=== PATIENT | female | born 1940 | race Caucasian/White ===

== ENCOUNTER 2023-09-19 16:29 | Emergency (ER) | payer OTHER, SELFPAY ==
[2023-09-19 16:35] VITALS: BP 174/86
[2023-09-19 19:00] VITALS: BP 154/75
--- NOTE | 2023-09-19 19:36 | ED.GENMED ---
History of Present Illness
General
Chief Complaint: Esophageal Problem
Source: patient
Time Seen by Provider: 09/19/23 19:06
Travel History
Have you had any contact with someone who has COVID-19?: No
Do you have any symptoms of coronavirus? Fever > 100 degrees, chills, cough, shortness of breath, sore throat, loss of taste or smell, muscle aches, or headache?: No
History of Present Illness
History of Present Illness:
83-year-old female presents emergency department with complaints of pain across the front of her chest and in her 'esophagus'. This started shortly after she drank/gulp coffee that she did not realize was very hot and she suspects that she 'burned
my esophagus'. She woke up this morning and was hungry so when she ate she felt like the pain got worse. She denies dyspnea, diaphoresis, nausea, vomit, abdominal pain, fever, chills, dizziness, swelling, foreign body sensation, bleeding, or other
complaints.
Past History
Past History
ED Past Medical History: Cancer, HTN, Hypercholesterolemia, Hypothyroidism and Other (Hiatal hernia)
ED Past Surgical History: Other (Lumpectomy, hiatal hernia repair)
Social History
Tobacco: Former smoker
Alcohol: None
Drug: None
Living: with family
Family History
Family History: Unable to obtain
Phy Exam
Physical Exam
Physical Exam:
GENERAL: Alert , in no apparent distress
EYE: pupils equal and reactive
NECK: Supple, no significant adenopathy.
ENT: o/p clr, mm dry
CARDIAC: Regular rate and rhythm .
LUNGS: Clear breath sounds bilaterally, no acute respiratory distress, no wheezes/rales/rhonchi
ABDOMEN: Soft, without focal tenderness, no r/g, no cvat
NEUROLOGICAL: Alert and oriented, no focal neuro deficits
SKIN: Warm and dry, skin intact.
MUSCULOSKELETAL: No edema, well perfused.
PSYCH: Normal and appropriate interaction.
Course
Orders/Labs/Results
Orders:
Orders
09/19/23 16:41
Electrocardiogram (*1) Urgent
Reason for Study: Shortness of Breath
EKG- Treatment ONCE
09/19/23 19:36
Cardiac Monitoring- Treatment ONCE
Mag Hydrox/Al Hydrox/Simeth [Maalox] 30 ml Phenobarb/Hyoscy/Atropine/Scop [] 10 ml Viscous Lidocaine 2% [Xylocaine Viscous Cup] 10 ml PO NOW
CR Chest - 2 Views Urgent
Comment:
Reason For Exam: pain
09/19/23 19:44
Mag Hydrox/Al Hydrox/Simeth [Maalox] 30 ml .ROUTE .STK-MED ONE
Phenobarb/Hyoscy/Atropine/Scop [] 10 ml .ROUTE .STK-MED ONE
09/19/23 19:45
Viscous Lidocaine 2% [Xylocaine Viscous Cup] 15 ml .ROUTE .STK-MED ONE
09/19/23 19:49
Complete Blood Count/No Diff Urgent
Comprehensive Metabolic Panel Urgent
D-Dimer Urgent
Troponin I Urgent
Abnormal Lab Results
09/19/23
19:49
WBC 14.5 H 10^3/uL
(4.8-10.8)
RDW 14.8 H %
(11.5-14.5)
Plt Count 437 H 10^3/uL
(130-400)
Glucose 157 H mg/dl
(70-99)
09/19/23 19:49
09/19/23 19:49
Vital Signs
Initial and Last Documented VS:
Initial Vital Signs
Temp Pulse Resp BP Pulse Ox
98.5 F 90 18 174/86 95
09/19/23 16:35 09/19/23 16:35 09/19/23 16:35 09/19/23 16:35 09/19/23 16:35
Last Documented Vital Signs
Temp Pulse Resp BP Pulse Ox
98.5 F 101 26 154/75 94
09/19/23 16:35 09/19/23 20:45 09/19/23 20:45 09/19/23 19:00 09/19/23 20:45
*Critical Care Note
Total Time (30-74mins, 75-104mins- exclusive of procedures): Not Applicable
Update Note
Update Note:
Patient presents to the Emergency Department with ___pain in chest and 'esophagus'
Number and Complexity of Problems Addressed at the Encounter
� Chronic conditions affecting care:
� Acute Exacerbation and/or Progression of Chronic Illness:
� Differential Diagnosis includes: But not limited to PE, superficial esophageal irritation, ACS, etc. etc.
Amount and/or Complexity of Data to be Reviewed and Analyzed
� I performed an independent evaluation of and my interpretation is:
EKG: Read by me, normal sinus rhythm, normal rate, no acute ischemia
CT:
Xrays:CXR read by me and rads nad
Laboratory Studies:unremkarable
Other:
� Review of other/old records reveals:
� Clinical information was obtained by an independent historian:
� Prescriptions/Medications Considered but not given:
� Further testing considered but not performed:
Risk of Complications and/or Morbidity or Mortality of Patient Management
� Social determinants of health affecting care:
� Discussion with other providers (PCP, Hospitalists, Consultants, etc):
� Escalation of care including admission/observation vs risk of discharge considered:922 pm Pt feels better s/p meds here. Do not appreciate acs, mediastinal air/perfor suggestion, D dimer nl, etc. Stable for d/c. D/w pt
import of f/u and reasons to rted.
ED Attending Note
-
Portions of this chart may have been created with voice recognition software.� Occasional wrong word or��sound alike� substitutions may have occurred due to the inherent limitations of voice recognition software.
Discharge Plan
Departure
Patient Disposition: Home (Routine Discharge)
Date of Disposition: 09/19/23
Time of Disposition: 21:23
Patient with high blood pressure during this ER visit?: Yes
Condition: Good
Discharge Problem:
Chest pain
Instructions: BLOOD PRESSURE, Chest Pain
Prescriptions:
No Action
levothyroxine 88 MCG tablet
88 mcg PO DAILY
amlodipine 5 MG tablet
5 mg PO DAILY Qty: 60 0RF
ibuprofen 800 mg tablet
800 mg PO Q8H PRN (Reason: breast pain) Qty: 20 0RF
Referrals:
Itzel Ferrara MD [Family Provider] - Follow up in 2-3 days
Activity Restrictions/Additional Instructions:
IF YOU DEVELOP INCREASING/NEW PAIN, FEVER, TROUBLE BREATHING, SWELLING, TROUBLE SWALLOWING, VOMITING, OR OTHER WORRISOME SIGNS, GO TO THE ER IMMEDIATELY!
Interventions
Interventions:
*Risk Screen - Suicide Last Done: 09/19/23 21:27
*General Assessment Last Done: 09/19/23 21:27
*Neglect/Abuse Screening Last Done: 09/19/23 21:27
ED- Fall Risk Assessment Last Done: 09/19/23 18:50
*ED COVID-19 Vaccine History Last Done: 09/19/23 16:35
*Nursing Disposition Last Done: 09/19/23 21:27
LG-Dokdyq-Wcbuqxlfpw Assessment Last Done: 09/19/23 18:50
Discharge Date and Time
Discharge Date/Time: 09/19/23 21:48
Print Language: ALGERIAN
[2023-09-19] MEDS: MAALOX 50 PO (19:47)
[2023-09-19 20:06] LABS: Hematocrit 40.3 % (37.0-47.0); Hemoglobin 13.3 g/dL (12.0-16.0); Mean Corpuscular Hgb 28.2 pg (27.0-31.0); Mean Corpuscular Volume 85.6 fL (81.0-99.0); Mean Platelet Volume 8.6 fL (7.4-10.4); Platelet Count 437 10^3/uL (130-400); Red Blood Cell Count 4.71 10^6/uL (4.20-5.40); Red Cell Dist. Width 14.8 % (11.5-14.5); White Blood Cell Count 14.5 10^3/uL (4.8-10.8)
[2023-09-19 20:19] LABS: ALT (SGPT) 20 U/L (0-35); AST (SGOT) 21 U/L (14-36); Albumin 4.5 g/dl (3.5-5.0); Alkaline Phosphatase 104 U/L (38-126); Blood Urea Nitrogen 12 mg/dl (7-17); Calcium 9.9 mg/dl (8.4-10.2); Carbon Dioxide 23 mmol/L (22-30); Chloride 102 mmol/L (98-107); Glucose 157 mg/dl (70-99); Potassium 4.3 mmol/L (3.5-5.1); Sodium 138 mmol/L (135-145); Total Bilirubin 1.3 mg/dl (0.2-1.3); Total Protein 7.6 g/dl (6.3-8.2); eGFR > 60.00
[2023-09-19 20:20] LABS: D-Dimer 0.43 ug/mlFEU (0.00-0.50)
[2023-09-19 20:39] LABS: Troponin I < 0.012 ng/ml
== END 2023-09-19 21:48 | disposition home or self-care (01) ==
LOC: EMR 16:29
PROVIDERS: EMERGENCY PHYSICIAN Emergency Medicine; FAMILY PHYSICIAN Internal Medicine
DX: R07.89 Other chest pain (principal); I10 Essential (primary) hypertension; E78.00 Pure hypercholesterolemia, unspecified; E03.9 Hypothyroidism, unspecified; Z87.891 Personal history of nicotine dependence
CPT/HCPCS: 99283; 71046; 80053; 84484; 85027; 85379; 93005

== ENCOUNTER 2023-12-06 11:12 | Emergency (ER) | payer OTHER, SELFPAY ==
[2023-12-06 11:15] VITALS: BP 142/84
--- NOTE | 2023-12-06 12:10 | ED.GENMED ---
History of Present Illness
General
Chief Complaint: Weakness
Time Seen by Provider: 12/06/23 11:35
History of Present Illness
History of Present Illness:
Male 83-year-old female with history of hypertension and hyperlipidemia presents to the emergency department for evaluation of muscle aching in the legs ongoing for the past several days whenever she ambulates. Her daughter reports that she has
complained about this for several weeks but is only become more significant in the past 2 days. She states it feels as though her muscles are fatigued whenever she attempts to ambulate. Denies any numbness or paresthesias. No fevers or chills.
She has no symptoms at rest. Has not fallen
Past History
Past History
ED Past Medical History: Cancer, HTN, Hypercholesterolemia, Hypothyroidism and Other (Hiatal hernia)
ED Past Surgical History: Other (Lumpectomy, hiatal hernia repair)
Social History
Tobacco: Former smoker
Alcohol: None
Drug: None
Living: with family
Family History
Family History: Unable to obtain
Review of Systems
Review of Systems
Allergies reviewed?: Yes
All Other Systems: ROS reviewed and negative except as documented in HPI and ROS
Phy Exam
Physical Exam
Physical Exam:
GEN: Well appearing, NAD, WDWN
HEENT: Oral mucosa moist, no scleral icterus
Cardiac: Regular rate and rhythm
Lung: No respiratory distress, no tachypnea
MSK: No gross deformity or injuries. Lower extremity compartments are soft diffusely and symmetric bilaterally. Range of motion of bilateral hips and knees is normal. Dorsalis pedis pulses are 1+ bilaterally. Patient is able to ambulate steadily
however reports thigh pain with ambulation
Skin: Good color, no pallor or jaundice, no rashes
Neuro: AO x3, moves all extremities freely
Psych: Calm, cooperative
Course
Orders/Labs/Results
Orders:
Orders
12/06/23 12:26
Complete Blood Count/With Diff Urgent
Urinalysis Reflex To Culture Urgent
Date Specimen was Collected: 12/06/23
Time Specimen was Collected: 12:13
Urine Microscopic Reflex Cult Urgent
12/06/23 13:31
Comprehensive Metabolic Panel Urgent
Creatine Phosphokinase Urgent
12/06/23 14:49
US AIDA/TBI Only Urgent
Comment:
Reason For Exam: bilat claudication
Abnormal Lab Results
12/06/23 12/06/23
12:26 13:31
WBC 11.6 H 10^3/uL
(4.8-10.8)
MCHC 32.5 L g/dL
(33.0-37.0)
Plt Count 449 H 10^3/uL
(130-400)
Abs Immat Gran (auto) 0.1 H 10^3/uL
(0-0.05)
Absolute Neuts (auto) 9.0 H 10^3/uL
(1.4-6.5)
Absolute Monos (auto) 0.9 H 10^3/uL
(0.1-0.6)
Immature Gran % 0.6 H %
(0-0.5)
Neutrophils % 77.1 H %
(42.2-75.2)
Lymphocytes % 14.5 L %
(20.5-51.1)
BUN 22 H mg/dl
(7-17)
Glucose 107 H mg/dl
(70-99)
Urine Ketones Trace A
(Negative)
Urine Bilirubin 1+ A
(Negative)
Leukocyte Esterase Rfl Trace A
(Negative)
Urine Bacteria (Reflex) Few A
(Negative)
12/06/23 12:26
12/06/23 13:31
Vital Signs
Initial and Last Documented VS:
Initial Vital Signs
Temp Pulse Resp BP Pulse Ox
98.4 F 100 22 142/84 95
12/06/23 11:15 12/06/23 11:15 12/06/23 11:15 12/06/23 11:15 12/06/23 11:15
Last Documented Vital Signs
Temp Pulse Resp BP Pulse Ox
98.4 F 92 18 138/82 95
12/06/23 11:15 12/06/23 15:02 12/06/23 15:02 12/06/23 15:02 12/06/23 15:02
*Critical Care Note
Total Time (30-74mins, 75-104mins- exclusive of procedures): Not Applicable
ED Attending Note
-
Portions of this chart may have been created with voice recognition software.� Occasional wrong word or��sound alike� substitutions may have occurred due to the inherent limitations of voice recognition software.
Discharge Plan
Departure
Patient Disposition: Home (Routine Discharge)
Date of Disposition: 12/06/23
Time of Disposition: 15:29
Patient with high blood pressure during this ER visit?: No
Discharge Problem:
Neurogenic claudication
Instructions: Lumbar spinal stenosis
Prescriptions:
New
methylprednisolone [Medrol (Rd)] 4 mg tablets,dose pack
See Rx Instructions .ROUTE .COMPLEX Qty: 21 0RF
Rx Instructions:
orally per package directions
No Action
levothyroxine 88 MCG tablet
88 mcg PO DAILY
amlodipine 5 MG tablet
5 mg PO DAILY Qty: 60 0RF
ibuprofen 800 mg tablet
800 mg PO Q8H PRN (Reason: breast pain) Qty: 20 0RF
Referrals:
NONE,* [Family Provider] -
Activity Restrictions/Additional Instructions:
[facility]
[address]
[place] [address]
[phone]
Interventions
Interventions:
*Risk Screen - Suicide Last Done: 12/06/23 11:17
*General Assessment Last Done: 12/06/23 11:17
*Neglect/Abuse Screening Last Done: 12/06/23 11:17
ED- Fall Risk Assessment Last Done: 12/06/23 11:35
*Nursing Disposition Last Done: 12/06/23 15:34
ED- Cardiac Assessment Last Done: 12/06/23 11:35
ED- Neurological Assessment Last Done: 12/06/23 11:35
ED- Pulmonary Assessment Last Done: 12/06/23 11:35
Discharge Date and Time
Print Language: EQUATORIAL GUINEAN
[2023-12-06 12:44] VITALS: BP 140/82
[2023-12-06 12:53] LABS: % Basophils 0.3 % (0-2); % Eosinophils 0.2 % (0-6); % Immature Granulocytes 0.6 % (0-0.5); % Lymphocytes 14.5 % (20.5-51.1); % Monocytes 7.3 % (1.7-9.3); % Neutrophils 77.1 % (42.2-75.2); Absolute Immature Granulocytes 0.1 10^3/uL (0-0.05); Absolute Lymphocytes 1.7 10^3/uL (1.2-3.4); Absolute Monocytes 0.9 10^3/uL (0.1-0.6); Hematocrit 41.8 % (37.0-47.0); Hemoglobin 13.6 g/dL (12.0-16.0); Mean Corp Hgb Conc. 32.5 g/dL (33.0-37.0); Mean Corpuscular Hgb 27.9 pg (27.0-31.0); Mean Corpuscular Volume 85.8 fL (81.0-99.0); Mean Platelet Volume 9.1 fL (7.4-10.4); Nucleated Red Blood Cells % 0 %; Platelet Count 449 10^3/uL (130-400); Red Blood Cell Count 4.87 10^6/uL (4.20-5.40); Red Cell Dist. Width 14.2 % (11.5-14.5); White Blood Cell Count 11.6 10^3/uL (4.8-10.8)
[2023-12-06 12:55] LABS: Urine Albumin Trace (Neg - Trace); Urine Bilirubin 1+ (Negative); Urine Character Clear (Clear); Urine Color Yellow; Urine Glucose Negative (Negative); Urine Ketone Trace (Negative); Urine Leukocyte Trace (Negative); Urine Nitrite Negative (Negative); Urine Occult Blood Negative (Negative); Urine Specific Gravity 1.015 (<1.030); Urine Urobilinogen 1+ (Neg - 1+)
[2023-12-06 13:12] LABS: Urine Squamous Cell 21-25 /LPF (Few)
[2023-12-06 13:13] LABS: Urine Bacteria Few (Negative); Urine Red Blood Cell 0-2 /HPF (0-2)
[2023-12-06 14:13] LABS: ALT (SGPT) 16 U/L (0-35); AST (SGOT) 22 U/L (14-36); Albumin 4.2 g/dl (3.5-5.0); Alkaline Phosphatase 109 U/L (38-126); Blood Urea Nitrogen 22 mg/dl (7-17); Calcium 9.5 mg/dl (8.4-10.2); Carbon Dioxide 25 mmol/L (22-30); Chloride 101 mmol/L (98-107); Creatine Phosphokinase 42 U/L (30-135); Glucose 107 mg/dl (70-99); Potassium 4.2 mmol/L (3.5-5.1); Sodium 136 mmol/L (135-145); Total Bilirubin 0.7 mg/dl (0.2-1.3); Total Protein 7.1 g/dl (6.3-8.2); eGFR > 60.00
[2023-12-06 15:02] VITALS: BP 138/82
== END 2023-12-06 16:22 | disposition home or self-care (01) ==
LOC: EMR 11:12
PROVIDERS: Physician Assistant; EMERGENCY PHYSICIAN Emergency Medicine
DX: M48.062 Spinal stenosis, lumbar region with neurogenic claudication (principal); I10 Essential (primary) hypertension; E78.00 Pure hypercholesterolemia, unspecified; Z87.891 Personal history of nicotine dependence
CPT/HCPCS: 99284; 80053; 81003; 81015; 82550; 85025; 93922

== ENCOUNTER 2024-03-24 12:05 | Inpatient (IN) | payer OTHER, SELFPAY ==
[2024-03-23] VITALS (12 sets, daily range): BP systolic 103–141; BP diastolic 58–84; PULSE 89–119; O2SAT 96; BMI 34.9
[2024-03-23] MEDS: DILAUDID 0.5 MG IV ×2 (00:24→01:48)
[2024-03-23] MEDS: ZOFRAN 4 MG IV ×3 (00:25→08:15)
--- NOTE | 2024-03-23 00:29 | ED.GENMED ---
History of Present Illness
General
Chief Complaint: Chest Problem
Source: patient and family (daughter)
Exam Limitations: none
Time Seen by Provider: 03/23/24 00:01
History of Present Illness
History of Present Illness:
This is a 83 year old female that comes in with c/o left flank/chest pain. States that she has pain in the rib area on the left sided and some in the left arm. daughter states that this has been coming on for a few days. State that a couple days
ago she had pain in her chest, neck and she took Tylenol thinking this would go away. States that it went away on the right side but the left flared up tonight. State sthat she can't take a deep breath due to the pain. States that she has chest pain
with SOB. Denies any fever, chills, abd pain, nausea, vomiting, diarrhea, headache, dizziness, urinary burning.
Past History
Past History
ED Past Medical History: Arrthythmia (Atrial fib), Cancer (Breast CA), HTN, Hypercholesterolemia, Hypothyroidism and Other (Hiatal hernia, Colitis, Macular degeneration, )
ED Past Surgical History: Gynecological (Fibroid removed, ) and Other (Lumpectomy left breast, hiatal hernia repair)
Social History
Tobacco: Former smoker
Alcohol: None
Drug: None
Personal:
Living: with family
Family History
Family History: Unable to obtain
Review of Systems
Review of Systems
All Other Systems: ROS reviewed and negative except as documented in HPI and ROS
Constitutional: Reports no symptoms; Denies fever or chills
EENT: Reports no symptoms
Respiratory: Reports trouble breathing; Denies cough
Cardiac: Reports chest pain
ABD/GI: Reports no symptoms; Denies abdominal pain, nausea, vomiting or diarrhea
: Reports no symptoms; Denies dysuria, frequency or urgency
Musculoskeletal: Reports other (Pain over left rib area. )
Skin: Reports no symptoms
Neurological: Reports no symptoms; Denies dizzy or headache
Psychiatric: Reports no symptoms
Phy Exam
General Physical Exam
General Presentation: moderate distress
General age: appears stated age
General Skin: warm and dry
General Habitus: elderly
General Mental: alert
General Hydration: dry mucous membranes
ENT Exam
ENT Exam: TM's normal, pharynx normal and neck supple
Eye Exam
Eye Exam: EOMI
Cardiovascular Exam
Cardiovascular Exam: regular rate/rhythm, no edema and normal peripheral pulses
Pulmonary Exam
Pulmonary Exam: lungs clear, no respiratory distress, no rales, chest non tender, no rhonchi, no cough and other (Decreased breath sounds left base)
Gastrointestinal Exam
Gastrointestinal Exam: normal bowel sounds, non tender, soft, no organomegaly, no pulsatile mass and non distended
Musculoskeletal Exam
Musculoskeletal Exam: full ROM, no edema and other (Tenderness with palpation over the left lower rib area)
Skin Exam
Skin Exam: normal color, warm/dry, no rash and no petechia
Psychiatric Exam
Psychiatric Exam: normal mood/affect
Course
Orders/Labs/Results
Orders:
Orders
03/22/24 23:42
EKG [Electrocardiogram (*1)] Urgent
Reason for Study: Abdominal Pain
EKG- Treatment ONCE
03/23/24 00:22
HYDROmorphone [Dilaudid] 0.5 mg .ROUTE .STK-MED ONE
03/23/24 00:23
Ondansetron Injectable [Zofran] 4 mg .ROUTE .STK-MED ONE
03/23/24 00:24
HYDROmorphone [Dilaudid] 0.5 mg IV NOW STA
03/23/24 00:25
Ondansetron Injectable [Zofran] 4 mg IV NOW STA
03/23/24 00:28
CR Chest - 2 Views Urgent
Comment:
Reason For Exam: Left chest pain
03/23/24 00:29
Ketorolac [Toradol] 15 mg IV NOW STA
03/23/24 00:31
Complete Blood Count/With Diff Urgent
Comprehensive Metabolic Panel Urgent
D-Dimer Urgent
Troponin I Urgent
03/23/24 01:43
CT Pe/abd/pel W Urgent
Reason For Exam: L chest abd pain. Dif taking deep breath
03/23/24 01:44
HYDROmorphone [Dilaudid] 0.5 mg IV NOW STA
Ondansetron Injectable [Zofran] 4 mg IV NOW STA
03/23/24 03:01
Prochlorperazine [Compazine] 5 mg IV NOW STA
Abnormal Lab Results
03/23/24
00:31
MCHC 31.9 L g/dL
(33.0-37.0)
RDW 14.8 H %
(11.5-14.5)
Plt Count 521 H 10^3/uL
(130-400)
Abs Immat Gran (auto) 0.1 H 10^3/uL
(0-0.05)
Absolute Neuts (auto) 7.5 H 10^3/uL
(1.4-6.5)
Absolute Monos (auto) 0.7 H 10^3/uL
(0.1-0.6)
Immature Gran % 0.6 H %
(0-0.5)
Neutrophils % 75.3 H %
(42.2-75.2)
Lymphocytes % 16.3 L %
(20.5-51.1)
D-Dimer 0.54 H ug/mlFEU
(0.00-0.50)
BUN 18 H mg/dl
(7-17)
Glucose 166 H mg/dl
(70-99)
03/23/24 00:31
03/23/24 00:31
Thrombocythemia, D-dimer very slightly elevated. Very slight Dehydration. Hyperglycemia. Troponin <0.012,
Vital Signs
Initial and Last Documented VS:
Initial Vital Signs
Pulse Resp
93 22
03/22/24 23:41 03/22/24 23:41
Last Documented Vital Signs
Pulse Resp BP Pulse Ox
96 16 121/82 95
03/23/24 02:01 03/23/24 02:01 03/23/24 02:01 03/23/24 02:01
MDM/Problems Addressed
Differential Diagnosis Includes:
PE, Pleurisy, PNA
MDM/Problems Addressed:
This is a 83 year old female that comes in with c/o left sided rib/chest pain. States that this started a few days ago and the right side got better but then tonight the left side flared up.
Will get labs, chest x-ray, medicate for pain.
back into see patient. Patient states that her pain is some better but she still has pain and is nauseated. Explained that her D-dimer is slightly elevated. Will get CT of chest/abd/pelvis.
Back into see patient and daughter. Explained that the CT if negative for any PE and that there is nothing acute going on in the abd. There is a small pleural effusion on the left. Patient continued with nausea and vomiting. Will admit for further
evaluation. Hospitalist notified.
Chronic conditions affecting care: Cancer
Acute Exacerbation and/or Progression of Chronic Illness: Cancer
*Radiology
Radiology exam reviewed: radiology read reviewed (CT night hawk- Good bolus, mild motion. NO evidence of pulmonary embolism. No evidence of aortic dissection or aneurysm. Small left base pleural effusion. Dependent atelectasis. Superimposed
infection is not excluded. Correlate with signs of infection. No focal airspace consolidation.), all reviewed NAD by ED Provider (CT cont-No pneumothorax. CT abd/pelvis:No definite CT findings to acount for the reported pain/symptoms. No
appendicitis or colitis. NO evidence of small bowel obstruction. No free fluid or free air. Cholelithiasis without definite CT findings of cholecystitis. Unremarkable CT appearance of the ) and other (CT cont-biliary tract and pancreas. Consider
correlation with RUQ exam findings. NO evidence of hydroureteronephrosis or obstructing stone. Mild renal atrophy with cystic foci suggesting renal cortical scarring. Unremarkable appearance of the pelvis viscera. No AAA )
*Pulse Oximetry
Patient hypoxic: no
*Opening Machine Cleaner Interpretation
Rate: tachycardiac
Heart Rate: 113
Rhythm: sinus tachycardia
*Critical Care Note
Total Time (30-74mins, 75-104mins- exclusive of procedures): Not Applicable
ED Attending Note
-
Portions of this chart may have been created with voice recognition software.� Occasional wrong word or��sound alike� substitutions may have occurred due to the inherent limitations of voice recognition software.
Discharge Plan
Departure
Patient Disposition: Admit
Date of Disposition: 03/23/24
Time of Disposition: 03:17
Admit to: Med/Surg
Presentation/result/management discussed w/ accepting MD/DO: Hospitalist
Patient with high blood pressure during this ER visit?: No
Condition: Good
Covid-19: Not Applicable
Discharge Problem:
Nausea & vomiting, Acute left flank pain
Prescriptions:
No Action
levothyroxine 88 MCG tablet
88 mcg PO DAILY
amlodipine 5 MG tablet
5 mg PO DAILY Qty: 60 0RF
ibuprofen 800 mg tablet
800 mg PO Q8H PRN (Reason: breast pain) Qty: 20 0RF
methylprednisolone [Medrol (Rd)] 4 mg tablets,dose pack
See Rx Instructions .ROUTE .COMPLEX Qty: 21 0RF
Rx Instructions:
orally per package directions
Referrals:
UNKNOWN - PT DOES,NOT KNOW [Family Provider] -
Interventions
Interventions:
*Risk Screen - Suicide Last Done: 03/22/24 23:35
*General Assessment Last Done: 03/23/24 00:01
*Neglect/Abuse Screening Last Done: 03/22/24 23:35
*ED COVID-19 Vaccine History Last Done: 03/23/24 00:01
ZR-Rgruxt-Poeoypwiwb Assessment Last Done: 03/23/24 00:01
ED- Cardiac Assessment Last Done: 03/23/24 00:01
ED- Pulmonary Assessment Last Done: 03/23/24 00:01
Discharge Date and Time
Print Language: HAITIAN
[2024-03-23] MEDS: TORADOL 15 MG IV (00:33)
[2024-03-23 00:39] LABS: % Basophils 0.4 % (0-2); % Eosinophils 0.4 % (0-6); % Immature Granulocytes 0.6 % (0-0.5); % Lymphocytes 16.3 % (20.5-51.1); % Neutrophils 75.3 % (42.2-75.2); Absolute Immature Granulocytes 0.1 10^3/uL (0-0.05); Absolute Lymphocytes 1.6 10^3/uL (1.2-3.4); Absolute Monocytes 0.7 10^3/uL (0.1-0.6); Absolute Neutrophils 7.5 10^3/uL (1.4-6.5); Hematocrit 44.2 % (37.0-47.0); Hemoglobin 14.1 g/dL (12.0-16.0); Mean Corp Hgb Conc. 31.9 g/dL (33.0-37.0); Mean Corpuscular Hgb 28.7 pg (27.0-31.0); Mean Corpuscular Volume 89.8 fL (81.0-99.0); Mean Platelet Volume 8.9 fL (7.4-10.4); Nucleated Red Blood Cells % 0 %; Platelet Count 521 10^3/uL (130-400); Red Blood Cell Count 4.92 10^6/uL (4.20-5.40); Red Cell Dist. Width 14.8 % (11.5-14.5); White Blood Cell Count 9.9 10^3/uL (4.8-10.8)
[2024-03-23 00:51] LABS: ALT (SGPT) 14 U/L (0-35); AST (SGOT) 22 U/L (14-36); Albumin 4.3 g/dl (3.5-5.0); Alkaline Phosphatase 88 U/L (38-126); Blood Urea Nitrogen 18 mg/dl (7-17); Calcium 9.3 mg/dl (8.4-10.2); Carbon Dioxide 22 mmol/L (22-30); Chloride 107 mmol/L (98-107); Estimated Creatinine Clearance 52 ml/min; Glucose 166 mg/dl (70-99); Potassium 4.6 mmol/L (3.5-5.1); Sodium 144 mmol/L (135-145); Total Bilirubin 0.6 mg/dl (0.2-1.3); Total Protein 7.1 g/dl (6.3-8.2); eGFR > 60.00
[2024-03-23 01:08] LABS: Troponin I < 0.012 ng/ml
[2024-03-23 01:19] LABS: D-Dimer 0.54 ug/mlFEU (0.00-0.50)
[2024-03-23] MEDS: COMPAZINE 5 MG IV (03:07)
--- NOTE | 2024-03-23 03:47 | HPS.HSE ---
Family Physician
-
Family Physician: NOT KNOW UNKNOWN - PT DOES
Chief Complaint
-
Chest Pain
History of Present Illness
Patient is an 83y F with PMH significant for breast cancer s/p lumpectomy and radiation, hypothyroidism and prior A-Fib s/p cardioversion who presents to ED complaining of chest pain. History obtained from patient and family at the bedside.
Patient has experienced pain across the shoulders and in the bilateral chest for the past few days. She has been taking Tylenol with minimal relief of her symptoms. Pain is worse with deep breathing or certain movements. This evening, pain was
much worse and patient presented to the ED for evaluation. Pain is mostly in the L chest / L rib area, but is not solely there as it has been in the past.
Patient denies any recent fevers / chills, sore throat, cough, etc.
No recent GI or symptoms or complaints.
In the ED, patient was given narcotic pain medications - after which she developed N/V.
At the time of my examination, patient is sleeping comfortably / somewhat sedate.
Medical History
Past Medical History
Past Medical History: Reports Other
Additional Past Medical History:
Hypertension
Hypothyroidism
Obesity
Breast Cancer s/p Lumpectomy and XRT
GERD / Hiatal Hernia
COPD
Paroxysmal Atrial Fibrillation s/p Cardioversion (2013)
Past Surgical History: Reports Other
Additional Past Surgical History:
Hiatal Hernia Repair
Left Lumpectomy
Social History
Tobacco: Former Smoker (Quit 20 years ago. Approx 30 pack years total use.)
Alcohol: None
Drug: None
Family History
Family History: Not pertinent
Allergies / Home Medications
Allergies reflects when Allergies were last updated in [facility].
Home Medications with original date entered in [facility]
Allergy/Medication List:
Daughter believes that patient takes only 'lisinopril and thyroid medicine' - but cannot recall doses, etc.
Review of Systems
-
History Source: Patient and Family
A 12 point ROS was completed and negative except as noted: Yes
Constitutional: Reports Fatigue; Denies Fever or Chills
EENT: Denies Sore Throat
Respiratory: Reports Trouble Breathing; Denies Cough or Hemoptysis
Cardiac: Reports Chest Pain; Denies Diaphoresis, Palpitations or Syncope
Abdomen/GI: Reports Nausea and Vomiting; Denies Abdominal Pain or Diarrhea
: Denies Dysuria or Frequency
Musculoskeletal: Denies Joint Pain or Edema
Neurological: Reports Headache; Denies Dizzy
Psych: Denies Depression or Anxiety
Physical Exam
Vital Signs
Vital Signs
Pulse Resp BP Pulse Ox
110 16 125/71 87
03/23/24 03:00 03/23/24 03:00 03/23/24 03:00 03/23/24 03:00
Physical Exam
General: Other (83y F curently sleeping comfortably. Awakens to stimuli and will answer questions / follow commands, but falls quickly back to sleep.)
HEENT: Moist mucous membranes and PERRLA
Respiratory: Other (Decreased at bases - otherwise clear.)
Cardiac: S1/S2 and Irregular Rhythm; No Murmur
GI: Soft, Non Tender, Non Distended and Normal Bowel Sounds
Musculoskeletal: No Clubbing, No Cyanosis and No Edema
Neuro: Oriented
Laboratory Results
-
03/23/24 00:31
03/23/24 00:31
Laboratory Results
Total Bilirubin 0.6 mg/dl (0.2-1.3) 03/23/24 00:31
AST 22 U/L (14-36) 03/23/24 00:31
ALT 14 U/L (0-35) 03/23/24 00:31
Alkaline Phosphatase 88 U/L (38-126) 03/23/24 00:31
Troponin I < 0.012 ng/ml 03/23/24 00:31
Impression/Plan
-
A/P: Patient is an 83y F with PMH significant for hypertension, hypothyroidism, breast cancer and A-Fib who presents to ED complaining of chest pain.
Chest Pain
- Observe overnight for further evaluation and treatment.
- Pain is mostly isolated to the L chest and is similar to multiple prior episodes that she has had per her daughter.
- Typically these episodes improve with NSAIDs and we will continue these for now.
- PT / OT evaluations for mobility / ROM.
- Follow for new / worsening symptoms.
- Follow for clinical improvement.
- Pain seems related to prior breast surgery / radiation as symptoms started shortly after that time.
- CT done today negative for PE, etc.
Paroxysmal Atrial Fibrillation
- Stable. Rates around 100 bpm on telemetry / EKG.
- Prior h/o A-Fib, but not known to have recurred since prior DCCV (2013).
- Monitor on tele overnight.
- Begin low dose Toprol for now and titrate as needed.
- Hold on OAC acutely while on NSAIDs for pain as noted above - may wish to start at discharge.
- Cardiology evaluation for additional recommendations.
N/V
- This was clearly secondary to narcotic pain medication administered in the ED.
- Continue supportive care, antiemetics, etc.
- Avoid narcotic medications for pain if possible.
Benign Hypertension
- ? amlodipine v lisinopril v other.
- Follow BP on newly added Toprol.
- Hold other meds for now pending BP trend / formal med rec.
Hypothyroidism
- Continue last recorded T4 dosing for now (88mcg).
- Update TFTs.
COPD without Acute Exacerbation
- Mild hypoxemia appreciated in the ED while patient is quite sedate.
- No wheezing on exam, recent cough, etc.
- Albuterol PRN.
- O2 as needed and wean off as able.
Obesity due to excess calories
- Affects all aspects of care.
- Encourage healthy diet and activity as tolerated with goal of weight loss.
DVT Prophylaxis: SCDs
Code Status: Full
[2024-03-23 03:48] LABS: Troponin I < 0.012 ng/ml
--- NOTE | 2024-03-23 05:57 | PTCARENOTE ---
Pt arrived to unit from ED via stretcher. Pt safely pulled over to bed in 338-1 with staff assist. Pt AAOx3, able to make needs known. Oriented to unit, call [place] within reach, plan of care ongoing.
[2024-03-23] MEDS: SYNTHROID 88 MCG PO (06:01)
--- NOTE | 2024-03-23 07:20 | CON.CAR ---
Addendum entered and electronically signed by Je Kruse MD 03/23/24 19:33:
83-year-old woman with a history of remote paroxysmal atrial fibrillation, [id number] score is 4, admitted with chronic left chest pain felt to be noncardiac and in atrial fibrillation with a marginally controlled ventricular response. Troponin
is undetectable. Previously underwent cardioversion for A-fib that occurred in the setting of gastric volvulus, without subsequent recurrences. Not chronically anticoagulated.
PMH: Paroxysmal A-fib as above, left-sided chest pain, left-sided breast cancer with lumpectomy and radiation 2014, hypertension, hyperglycemia, hyperlipidemia, COPD, CKD 3 AA, hypothyroidism
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
SH: , ex-smoker no alcohol, lives with family
Family history: Noncontributory
Allergies, home meds: per summary screen
Current meds: Levothyroxine 88 mcg a day, pantoprazole 40 a day, metoprolol ER 12.5 twice daily, atorvastatin 10 mg nightly, ibuprofen as needed, acetaminophen
138/80, pulse 97, resp rate 18, afebrile, no acute distress, some decrease in breath sounds on left, irregular rate and rhythm DVT modestly elevated, no obvious murmurs, abdomen benign, 1+ to 2+ edema
CTA: Mild CHF, fatty liver, cholelithiasis, possible splenic infarct, diverticulosis, renal cortical scarring small left pleural effusion
Hemoglobin 14.1, platelets are 452, sed rate is 23, D-dimer 0.54, proBNP is 1330
Echo: EF 55-60%, severely dilated left atrium, mild mitral regurgitation, Mild LVH, pulmonary artery pressure of 30-35 mmHg, aortic sclerosis
Chest x-ray atherosclerosis
EKG atrial flutter, rapid ventricular response, nonspecific ST and T changes
Impression:
Chest pain
Recurrence of paroxysmal Afib
Paroxysmal Afib, initially diagnosed in the setting of gastric volvulus and hiatal hernia 2013
Chronic left sided chest pain
h/o breast cancer with left lumpectomy and radiation 2014
HTN
Hyperglycemia
Hyperlipidemia
COPD
CKD 3a
Hypothyroid with elevated TSH and low normal free T4
Plan:
She presents with atrial fibrillation that is probably persistent and incidentally discovered during a presentation for chronic noncardiac chest pain.
.
There is evidence for mild volume overload on CT scan and by proBNP.
.
Her ventricular response is reasonably controlled at present.
.
Her [id number] is 4, 5 if we consider to her to have heart failure as suggested by imaging and proBNP. She should be anticoagulated. Daughter has expressed some reservations regarding this and we will await decision re: anticoagulation
We could consider the use of an SGLT2 antagonist. I would be in favor of low-dose diuretic therapy. Spironolactone is also an option.
Her EKG is overall satisfactory.
Her chest pain is likely noncardiac, defer best management strategy to hospitalist. We can consider an outpatient sestamibi study though this may not be mandatory.
We will await decision of the daughter regarding anticoagulation and will reassess regarding diuretics, SGLT2 antagonists, spironolactone etc.
At this point, I am more in favor of a rate control strategy rather than attempts at anabaptist of sinus rhythm.,
Original Note:
Consultation
Consultation Request
Date/Time Consultation Requested: 03/23/24 at 0520
Date/Time Consultation Performed: 03/23/24 at 0720
Requesting Provider: Dr. Allan
Performing Provider: Dr. Kruse
Reason for Consultation: Chest pain, recurrent pAfib
Medical History
-
History of Present Illness:
Patient came to [facility] yesterday with chest pain and was admitted with recurrence of Afib and cardiology has been consulted. Patient says that left sided chest pain started about an hour prior to admission. Patient had been experiencing right sided
chest pain for a few days prior that had resolved prior to the start of the left sided chest pain. Patient thinks this is similar to previous left sided chest pains. Patient has been seen in the ER and had admissions for chest pain about 1-2 times a
year since her left breast cancer surgery and radiation in 2014. Patient isn't sure this is the exact same pain and so she asked to come to [facility] last night. Troponin has been serially undetectable. Chest pain treated simultaneously with Dilaudid and
Toradol and no real improvement so another dose of Dilaudid was given an hour later resulting in N/V and questionable pain relief. Patient denies exertional chest pain. Cardiology also asked to see patient for recurrence of Afib. Patient with Afib
in 2013 in the setting of left atrial compression by a hiatal hernia and gastric volvulus at the time and following hernia/volvulus surgery the patient has not had documented recurrence of Afib. ECGs from admissions and ER visits over the years
have always been in SR. Patient wore a week long monitor in 2014 without Afib as well. Patient denies palpitations. Patient was not historically anticoagulated due to lack of recurrence of Afib and the thought that her Afib was situational in 2014
due to the mechanical LA compression that was resolved with surgery.
PMH:
Paroxysmal Afib, initially diagnosed in the setting of gastric volvulus and hiatal hernia 2013
Chronic left sided chest pain
h/o breast cancer with left lumpectomy and radiation 2014
HTN
Hyperglycemia
Hyperlipidemia
COPD
CKD 3a
Hypothyroid
Past Medical History
Past Medical History: Other (in HPI)
Past Surgical History: Gynecological (left breast lumpectomy) and Other (laparoscopic diaphragm repair, hiatal hernia repair)
Social History
Tobacco: Former Smoker
Alcohol: None
Drug: None
Personal:
Living: With Family (alternates living with her children that live [place]
Family History
Family History: Reviewed & Not Pertinent
Allergies / Home Medications
Allergy/AdvReac Type Severity Reaction Status Date / Time
erythromycin base Allergy Unknown Unknown Verified 03/22/24 23:36
[Erythromycin Base]
�Medication �Instructions �Recorded �Confirmed �Type
levothyroxine 88 mcg tablet 88 mcg PO DAILY Thyroid 01/26/19 12/01/22 History
amlodipine 5 mg tablet 5 mg PO DAILY Blood pressure #60 01/21/21 12/01/22 Rx
tabs
ibuprofen 800 mg tablet 800 mg PO Q8H PRN breast pain #20 12/01/22 Rx
tabs
methylprednisolone 4 mg tablets in See Rx Instructions PO .COMPLEX 12/06/23 Rx
a dose pack (Medrol (Rd)) #21 ea
Review of Systems
-
History Source: Patient
All other systems: Negative unless noted
Physical Exam
Vital Signs
Temp Pulse Resp BP Pulse Ox
97.7 F 101 18 132/73 94
03/23/24 05:46 03/23/24 05:46 03/23/24 05:46 03/23/24 05:46 03/23/24 05:46
GEN: NAD. AAO to person, place and situation
HEENT: EOMI, MMM
LUNGS: CTA B/L, no wheezes/rales
CV: Afib on tele. Irreg irreg, S1/S2, no murmur
ABD: soft, BS+, NT, ND
EXT: No clubbing, cyanosis or lesions B/L. +1 non-pitting B/L LE edema
NEURO: Gross non-focal
SKIN: Warm, dry and pink. No rash
Lab Results
Troponin I Cancelled 03/23/24 06:21
CBC 03/23/2024: WBC 13.4, hemoglobin 14.1, hematocrit 46.7, platelet count 452,000
BMP 03/23/2024: Sodium 143, potassium 5.5, BUN 18, creatinine 0.8, blood sugar 184, TSH high at 8.79, but free T4 normal at 0.79
Troponin undetectable x 2
Impression / Plan
-
PCP: Dr. Jason Borges
Cardiology: Dr. NASEEM Kruse, last seen 04/01/15
Impression:
Chest pain
Recurrence of paroxysmal Afib
Paroxysmal Afib, initially diagnosed in the setting of gastric volvulus and hiatal hernia 2013
Chronic left sided chest pain
h/o breast cancer with left lumpectomy and radiation 2014
HTN
Hyperglycemia
Hyperlipidemia
COPD
CKD 3a
Hypothyroid with elevated TSH and low normal free T4
Echo 09/12/2021: EF 55%, no significant valve disease
Echo 03/23/24: Study pending
Plan:
-Patient came to [facility] yesterday with chest pain and was admitted with recurrence of Afib and cardiology has been consulted. Patient says that left sided chest pain started about an hour prior to admission. Patient had been experiencing right sided
chest pain for a few days prior that had resolved prior to the start of the left sided chest pain. Patient thinks this is similar to previous left sided chest pains. Patient has been seen in the ER and had admissions for chest pain about 1-2 times a
year since her left breast cancer surgery and radiation in 2014. Patient isn't sure this is the exact same pain and so she asked to come to [facility] last night. Troponin has been serially undetectable. Chest pain treated simultaneously with Dilaudid and
Toradol and no real improvement so another dose of Dilaudid was given an hour later resulting in N/V and questionable pain relief. Patient denies exertional chest pain. Cardiology also asked to see patient for recurrence of Afib. Patient with Afib
in 2013 in the setting of left atrial compression by a hiatal hernia and gastric volvulus at the time and following hernia/volvulus surgery the patient has not had documented recurrence of Afib. ECGs from admissions and ER visits over the years
have always been in SR. Patient wore a week long monitor in 2014 without Afib as well. Patient denies palpitations. Patient was not historically anticoagulated due to lack of recurrence of Afib and the thought that her Afib was situational in 2014
due to the mechanical LA compression that was resolved with surgery.
-Chest pain sounds more chronic in nature. Troponin serially undetectable. Unlikely to be ACS. Recommend outpatient stress test.
-Recurrence of Afib noted on ECG that was reviewed by me and compared to previous ECGs over the last 8 years, this appears to be the first documented recurrence since 2015.Patient is asymptomatic.
-Agree with the addition of Toprol XL 12.5 mg BID by Hospitalist attending overnight and would continue.
-Patient has not been anticoagulated in the past due to lack of recurrence of Afib outside of LA compression at time of hiatal hernia/gastric volvulus in 2015. Would recommend OAC, [id number] is 4, but if you include likely DM 2 diagnosis then it
is 5. Patient cannot think of a contraindication to starting OAC. Will start Eliquis 5 mg BID (age 83, Cre 0.8, wt 92.08 kg) and ask CM to check on cost
-Check echo, ordered by me
-TSH high and free T4 is low normal. Outpatient dose of levothyroxine 88 mcg daily has been ordered
-Outpatient dose of amlodipine 5 mg daily is on hold, will follow BPs on Toprol XL and can add back if needed.
-Patient noted to be hyperglycemic. Check HgbA1c
-Check CVE, patient was taking simvastatin 20 mg daily at last cardiology visit in 2014.
-Updated patient's daughter, Luz Marina, by phone for 13:49 min. Explained chest pain and undetectable Troponin levels. Reviewed recurrence of Afib and recommendation for OAC, but patient's daughter would like to investigate more natural alternatives and
she follows with a functional medicine doctor and will review patient's case with them to see what alternatives might be. Reviewed risks of stroke and asked for a call back later today to review final decision of patient/family. For now the patient
has not been started on OAC.
[2024-03-23 07:32] LABS: Blood Urea Nitrogen 18 mg/dl (7-17); Carbon Dioxide 24 mmol/L (22-30); Chloride 106 mmol/L (98-107); Estimated Creatinine Clearance 59 ml/min; Glucose 184 mg/dl (70-99); Potassium 5.5 mmol/L (3.5-5.1); Sodium 143 mmol/L (135-145); eGFR > 60.00
[2024-03-23 08:01] LABS: TSH Reflex To Free T4 8.79 uIU/ml (0.47-4.68)
[2024-03-23 08:30] LABS: Free T4 0.79 ng/dl (0.78-2.19)
[2024-03-23 08:31] LABS: Hematocrit 46.7 % (37.0-47.0); Hemoglobin 14.1 g/dL (12.0-16.0); Mean Corp Hgb Conc. 30.2 g/dL (33.0-37.0); Mean Corpuscular Hgb 28.8 pg (27.0-31.0); Mean Corpuscular Volume 95.3 fL (81.0-99.0); Mean Platelet Volume 8.9 fL (7.4-10.4); Platelet Count 452 10^3/uL (130-400); Red Cell Dist. Width 14.8 % (11.5-14.5); White Blood Cell Count 13.4 10^3/uL (4.8-10.8)
[2024-03-23 09:00] LABS: Troponin I < 0.012 ng/ml
[2024-03-23] MEDS: PROTONIX 40 MG PO (09:14)
[2024-03-23] MEDS: TOPROL XL 12.5 MG PO ×2 (09:14→19:48)
[2024-03-23 09:16] LABS: Glycohemoglobin (HgbA1c) 6.3 % (4.0-5.6)
--- NOTE | 2024-03-23 09:19 | W.CHA2DS2VAS ---
[id number] Score
Score
Age in Years (65=0, 65-74=1, >/=75=2): > or = 75
Sex (Female=+1): Female
Congestive Heart Failure History (Yes=+1): No
Hypertension History (Yes=+1): Yes
Stroke/TIA/Thromboembolism History (Yes=+2): No
Vascular Disease History (Yes=+1): No
Diabetes Mellitus (Yes=+1): No
Score >/=2 is otherwise an anticoagulation candidate: 4
[2024-03-23] MEDS: TYLENOL 1000 MG PO ×3 (09:26→21:06)
[2024-03-23] MEDS: LOKELMA 10 GRAM PO (10:33)
[2024-03-23 10:53] LABS: Erythrocyte Sed Rate 23 mm/hour (0-20)
--- NOTE | 2024-03-23 12:15 | W.PN.UPDATE ---
Update Note
Progress Note Update
Seen and examined independent of pulmonary physician. Patient was nauseous earlier which improved with Zofran. States the pain is improving. Found to be in atrial fibrillation with rapid ventricular response.
Gen: sitting in chair,
cars s1 s2 irregular ireggular
pulm cta anteriorly
abd soft non tender non distended
ext no edema
A/P: Patient is an 83y F with PMH significant for hypertension, hypothyroidism, breast cancer and A-Fib who presents to ED complaining of chest pain.
Chest Pain
- Pain is mostly isolated to the L chest and is similar to multiple prior episodes that she has had per her daughter.
- Typically these episodes improve with NSAIDs and we will continue these for now.
- PT / OT evaluations for mobility / ROM.
- Follow for new / worsening symptoms.
- Follow for clinical improvement.
- Pain seems related to prior breast surgery / radiation as symptoms started shortly after that time.
- CT done today negative for PE, etc.
Paroxysmal Atrial Fibrillation
- Stable.
- Prior h/o A-Fib, but not known to have recurred since prior DCCV (2013).
- Monitor on tele. Check lipid panel/a1c
- Begin low dose Toprol for now and titrate as needed.
- Agree w/ Eliquis. Cardiology correspondence noted and discussion with patient daughter.
- Cardiology evaluation for additional recommendations.
N/V
- This was clearly secondary to narcotic pain medication administered in the ED.
- Continue supportive care, antiemetics, etc.
- Avoid narcotic medications for pain if possible.
Benign Hypertension
- ? amlodipine v lisinopril v other.
- Follow BP on newly added Toprol.
- Hold other meds for now pending BP trend / formal med rec.
Hypothyroidism
- Continue last recorded T4 dosing for now (88mcg).
- Update TFTs.
COPD without Acute Exacerbation
- Mild hypoxemia appreciated in the ED while patient is quite sedate.
- No wheezing on exam, recent cough, etc.
- Albuterol PRN.
- O2 as needed and wean off as able.
Obesity due to excess calories
- Affects all aspects of care.
- Encourage healthy diet and activity as tolerated with goal of weight loss.
DVT Prophylaxis: SCDs/eliquis
Code Status: Full
--- NOTE | 2024-03-23 13:05 | PTCARENOTE ---
Tried to wean pt off oxygen, but sat after been off the oxygen was 88-90%. Pt placed back on oxygen at 2 liters.
[2024-03-23 15:30] LABS: NT-proBNP 1330 pg/ml
--- NOTE | 2024-03-23 16:21 | CM ---
Alert awake oriented patient who lives with her children. Spoke with Luz Marina paul she is currently living with. They live in 2 story home with 4 steps to enter and 14 steps to bed/bathroom. She is independent in all activities of daily living.Offered VN
dgt declined need.TRAN copy left in room. Explained TRAN letter to dgt.All questions answered.
No adaptive devices
Never had VN/SNF
Pharmacy [facility] [place]
PCP [facility]
PLAN Home no needs
[2024-03-23] MEDS: LIPITOR 10 MG PO (17:18)
[2024-03-24] VITALS (7 sets, daily range): BP systolic 115–146; BP diastolic 65–76; PULSE 71; O2SAT 96
[2024-03-24] MEDS: MOTRIN 600 MG PO (04:02)
[2024-03-24] MEDS: SYNTHROID 88 MCG PO (05:05)
[2024-03-24] MEDS: PROTONIX 40 MG PO (08:46)
[2024-03-24] MEDS: TOPROL XL 12.5 MG PO ×2 (08:46→21:04)
[2024-03-24] MEDS: TYLENOL 1000 MG PO ×3 (08:47→21:04)
[2024-03-24 10:05] LABS: Blood Urea Nitrogen 22 mg/dl (7-17); Calcium 9.4 mg/dl (8.4-10.2); Carbon Dioxide 27 mmol/L (22-30); Chloride 102 mmol/L (98-107); Estimated Creatinine Clearance 43 ml/min; Glucose 176 mg/dl (70-99); Sodium 139 mmol/L (135-145); eGFR 49.86
--- NOTE | 2024-03-24 11:49 | W.PN.HOSP.TC ---
Today's Communication/Plan
-
dc NSAIDs
wean off oxygen
start eliquis
cont toprol
pt/ot
urine lytes
Assessment / Plan
Assessment / Plan
A/P: Patient is an 83y F with PMH significant for hypertension, hypothyroidism, breast cancer and A-Fib who presents to ED complaining of chest pain.
Atypical Chest Pain
- Pain is mostly isolated to the L chest and is similar to multiple prior episodes that she has had per her daughter.
- PT / OT evaluations for mobility / ROM.
- Follow for new / worsening symptoms.
- Follow for clinical improvement.
- Pain seems related to prior breast surgery / radiation as symptoms started shortly after that time.
- Troponin negative x 3.
- CT done today negative for PE. Lobulated splenic contour with some areas of low attenuation as above, question previous injury or previous infarct. Acuity of these findings is indeterminate, new as compared with 2020.
Paroxysmal Atrial Fibrillation
- Stable.
- Prior h/o A-Fib, but not known to have recurred since prior DCCV (2013).
- Monitor on tele.
- Begin low dose Toprol for now and titrate as needed.
- Agree w/ Eliquis. Discussed with patient that she is at increased risk of having a CVA. Patient with elevated Micah Vasc score. This was discussed with patient. Who is awake alert and oriented. Patient agreed to be started on Eliquis and
states she wants to reduce her risk of having stroke.
- Cardiology evaluation for additional recommendations.
Acute kidney injury likely secondary to prerenal versus NSAIDs
-DC Toradol and ibuprofen
-Trend BMP. Check urine lites and eosinophils.
N/V
- This was clearly secondary to narcotic pain medication administered in the ED.
- Continue supportive care, antiemetics, etc.
- Tolerating diet
Benign Hypertension
- Follow BP on newly added Toprol. BP well controlled with 115/66
- Hold other meds for now pending BP trend / formal med rec.
Hypothyroidism
- Continue with supplementation of Synthroid, repeat TFT in 4 to 6 weeks as outpatient.
COPD
Acute hypoxic respiratory insufficiency
- Chest x-ray was negative for infiltrates or pulmonary edema.
- duoneb PRN. not on any home inhalers
- O2 as needed and wean off as able.
Obesity due to excess calories
- Affects all aspects of care.
- Encourage healthy diet and activity as tolerated with goal of weight loss.
Prediabetes
-A1c 6.3. Changed to carb restricted diet for now. Can benefit FROM metformin once creatinine improves
Hyperkalemia
-resolved
DVT Prophylaxis: SCDs/eliquis
Code Status: Full
Anticipated Discharge: 24 - 48 hours
Subjective/Interval History
-
Date of Service: March 24, 2024
Remains with intermittent chest pain-TTP at costochondral junction and under left breast
chronic per patient
states pain started after left breast surgery
Objective Data
-
Labs:
Laboratory Results
03/24/24
08:57
Sodium 139
Potassium 5.0
Chloride 102
Carbon Dioxide 27
BUN 22 H
Creatinine 1.1 H
Glucose 176 H
Calcium 9.4
Vital Signs:
Vital Signs
Temp Pulse Resp BP Pulse Ox
98 F 88 16 115/66 96
03/24/24 11:27 03/24/24 11:27 03/24/24 11:27 03/24/24 11:27 03/24/24 11:27
I&O
03/23/24 03/24/24 03/25/24
06:59 06:59 06:59
Intake Total 840 / 840
Balance 840 / 840
Physical Exam
-
General: No Apparent Distress and Conversant
HEENT: Normocephalic, Atraumatic and Oxygen
Respiratory: Decreased Breath Sounds
Cardiac: Regular Rhythm, S1/S2 and Other (TTP at left lower costochrondal junction )
GI: Soft, Nontender, Nondistended and Normal Bowel Sounds
Genito-urinary: No Costovertebral Tender
Neuro: Awake, Alert, Oriented, AO x 3 and No Motor Deficits
Psych: Calm and Intact Judgement/Insight
Data Reviewed
-
Total Time Spent with Patient (in minutes): 52
[2024-03-24] MEDS: ELIQUIS 5 MG PO ×2 (12:13→21:04)
[2024-03-24] MEDS: SPIRIVA RESPIMAT 2.5 MCG INH (12:52)
--- NOTE | 2024-03-24 13:24 | W.PN.CARDCBS ---
Addendum entered and electronically signed by Je Kruse MD 03/24/24 18:41:
83-year-old woman with a history of remote paroxysmal atrial fibrillation, [id number] score is 4, admitted with chronic left chest pain felt to be noncardiac and in atrial fibrillation with a marginally controlled ventricular response. Troponin
is undetectable. Previously underwent cardioversion for A-fib that occurred in the setting of gastric volvulus, without subsequent recurrences. Not chronically anticoagulated.
PMH: Paroxysmal A-fib as above, left-sided chest pain, left-sided breast cancer with lumpectomy and radiation 2014, hypertension, hyperglycemia, hyperlipidemia, COPD, CKD 3 AA, hypothyroidism
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
SH: , ex-smoker no alcohol, lives with family
Family history: Noncontributory
Allergies, home meds: per summary screen
Current meds: Levothyroxine, pantoprazole, metoprolol ER 12.5 twice daily, atorvastatin 10 mg daily, apixaban 5 mg twice daily, Spiriva
Blood pressure 131/71, pulse 82, respiratory rate 16, weight is 92 kg, intake and output incomplete, head neck exam unremarkable some decreased breath sounds left base, irregular rate and rhythm, no obvious murmurs, JVD difficult to assess, some
edema, abdomen benign
telemetry with adequate rate control
Potassium 5.0, BUN/creatinine 22 and 1.1
Echo EF 55-60% mild LVH, mild mitral regurgitation, dilated left atrium, normal RV, aortic sclerosis, pulmonary artery pressure 30-35 mmHg
Impression:
Noncardiac chest pain
Persistent/permanent atrial fibrillation
Acute HFpEF
Paroxysmal Afib, initially diagnosed in the setting of gastric volvulus and hiatal hernia 2013
Chronic left sided chest pain
h/o breast cancer with left lumpectomy and radiation 2014
HTN
Hyperglycemia
Hyperlipidemia
COPD
CKD 3a
Hypothyroid with elevated TSH and low normal free T4
Plan:
Atrial fibrillation: Suspect now persistent or permanent. Rate is controlled, and she has agreed to start Eliquis. At this point would plan on strategy of rate control only, would not attempt quaker of sinus rhythm given comorbidities and
patient preference.
HFpEF: Diagnosis based upon CT scan, hypoxemia, proBNP, relatively mild. Would start furosemide 20 mg daily in AM. Trend creatinine. Add Farxiga.
Chest pain: Noncardiac continue supportive care
Other issues Per attending team.
Original Note:
Today's Communication / Plan
-
Start Eliquis to reduce risk of stroke
Continue Low dose Toprol for rate control strategy of PAF
Consider low dose oral Lasix once creat improves
Wean O2 as tolerated
Impression / Plan
-
PCP: Dr. Jason Borges
Cardiology: Dr. NASEEM Kruse, last seen 04/01/15
Impression:
Presented 03/22/2024 with chest pain.
Recurrence of paroxysmal Afib
Paroxysmal Afib, initially diagnosed in the setting of gastric volvulus and hiatal hernia 2013
Chronic left sided chest pain
h/o breast cancer with left lumpectomy and radiation 2014
HTN
Hyperglycemia
Hyperlipidemia
COPD
CKD 3a
Hypothyroid with elevated TSH and low normal free T4
Echo 09/12/2021: EF 55%, no significant valve disease
Echo 03/23/24: EF 55 to 60%. Mild concentric LVH. Severely dilated left atrium. Mild MR
Plan:
-Chest pain sounds more chronic in nature. Troponin serially undetectable. Unlikely to be ACS. CT of chest was negative for PE. Recommend outpatient stress test.
-Recurrence of Afib noted on ECG. This appears to be the first documented recurrence since 2014. Patient is asymptomatic.
-New to low dose Toprol XL 12.5 mg BID this admission. Heart rates well controlled. Given findings of echocardiogram with severe left atrial dilation may be difficult to keep patient in sinus rhythm. For now would recommend rate control strategy.
-Patient has not been anticoagulated in the past due to lack of recurrence of Afib outside of LA compression at time of hiatal hernia/gastric volvulus in 2015.
-[id number] is 4-5(if you include likely DM 2 diagnosis). Pt has agreed to start Eliquis 5 mg BID (age 83, Cre 0.8, wt 92.08 kg) on 03/24/2024
-Personally reviewed echo from 03/23/2024 which shows preserved ejection fraction with severe left atrial dilation and mild MR. Findings were reviewed with patient
-TSH 8.79, free T4 0.79 (low normal).Continue levothyroxine 88 mcg daily
-proBNP 1330. CT of chest/abdomen/pelvis suggestive of mild heart failure with small left pleural effusion and low lung volumes. Would consider starting low-dose oral diuretic Lasix 20 mg once creat improves
-Outpatient dose of amlodipine 5 mg daily is on hold. Blood pressure is reasonably controlled with Toprol. Continue to monitor with consideration of starting low-dose Lasix
-Patient noted to be hyperglycemic. HgbA1c 6.3%. Could consider a utilization of SGLT2 inhibitor
-Continue atorvastatin 10 mg. Check lipid profile in am
-Wean O2 as tolerated
HPI 03/23/2024:
Patient came to [facility] yesterday with chest pain and was admitted with recurrence of Afib and cardiology has been consulted. Patient says that left sided chest pain started about an hour prior to admission. Patient had been experiencing right sided
chest pain for a few days prior that had resolved prior to the start of the left sided chest pain. Patient thinks this is similar to previous left sided chest pains. Patient has been seen in the ER and had admissions for chest pain about 1-2 times a
year since her left breast cancer surgery and radiation in 2014. Patient isn't sure this is the exact same pain and so she asked to come to [facility] last night. Troponin has been serially undetectable. Chest pain treated simultaneously with Dilaudid and
Toradol and no real improvement so another dose of Dilaudid was given an hour later resulting in N/V and questionable pain relief. Patient denies exertional chest pain. Cardiology also asked to see patient for recurrence of Afib. Patient with Afib
in 2013 in the setting of left atrial compression by a hiatal hernia and gastric volvulus at the time and following hernia/volvulus surgery the patient has not had documented recurrence of Afib. ECGs from admissions and ER visits over the years
have always been in SR. Patient wore a week long monitor in 2014 without Afib as well. Patient denies palpitations. Patient was not historically anticoagulated due to lack of recurrence of Afib and the thought that her Afib was situational in 2014
due to the mechanical LA compression that was resolved with surgery.
Progress Note - Take Down Sorter
Subjective
Date of Service: March 24, 2024
Patient seen and examined. Sitting in bed still with chest discomfort with taking deep breaths
Objective
Labs:
03/23/24 07:57
03/24/24 08:57
Labs
Hgb 14.1 g/dL (12.0-16.0) 03/23/24 07:57
Hct 46.7 % (37.0-47.0) 03/23/24 07:57
Plt Count 452 10^3/uL (130-400) H 03/23/24 07:57
Sodium 139 mmol/L (135-145) 03/24/24 08:57
Potassium 5.0 mmol/L (3.5-5.1) 03/24/24 08:57
BUN 22 mg/dl (7-17) H 03/24/24 08:57
Creatinine 1.1 mg/dL (0.6-1.0) H 03/24/24 08:57
Glucose 176 mg/dl (70-99) H 03/24/24 08:57
Troponins
03/23/24 03/23/24 03/23/24
00:31 03:16 06:21
Troponin I < 0.012 < 0.012 Cancelled
03/23/24
07:57
Troponin I < 0.012
Vital Signs and I&O:
Vital Signs
Temp Pulse Resp BP Pulse Ox
98 F 88 16 115/66 96
03/24/24 11:27 03/24/24 11:27 03/24/24 11:27 03/24/24 11:27 03/24/24 11:27
Vital Signs
Temp Pulse Resp BP Pulse Ox
98 F 88 16 115/66 96
03/24/24 11:27 03/24/24 11:27 03/24/24 11:27 03/24/24 11:27 03/24/24 11:27
Intake & Output
03/22/24 03/23/24 03/24/24 03/25/24
06:59 06:59 06:59 06:59
Intake Total 840 / 840
Balance 840 / 840
Physical Exam
Physical Exam
GEN: No distress, awake, Ox3
HEENT: supple, anicteric, mmm
LUNGS: crackles at left base otherwise CTA, no wheezes/rales; wearing 2 lpm via NC
CV: irreg irreg, S1/S2, no murmur, rub or gallop
ABD: soft, BS+, NT/ND
EXT: trace edema edema
NEURO: Gross non-focal
SKIN: No rash, warm, dry, pink
[2024-03-24] MEDS: LIPITOR 10 MG PO (17:14)
[2024-03-24 18:46] LABS: Body Fluid for Eosinophils No Eosinophils seen
[2024-03-24 19:52] LABS: Urine Sodium 39 mmol/L (30-90)
[2024-03-25 03:52] VITALS: BP 135/63
[2024-03-25] MEDS: SYNTHROID 88 MCG PO (05:29)
[2024-03-25 06:00] VITALS: BMI 34.4
[2024-03-25 06:08] LABS: Blood Urea Nitrogen 20 mg/dl (7-17); Calcium 9.1 mg/dl (8.4-10.2); Carbon Dioxide 30 mmol/L (22-30); Chloride 101 mmol/L (98-107); Estimated Creatinine Clearance 67 ml/min; Glucose 112 mg/dl (70-99); HDL Cholesterol 38 mg/dl; LDL Cholesterol, Calculated 95 mg/dl; Potassium 5.1 mmol/L (3.5-5.1); Sodium 139 mmol/L (135-145); Total Cholesterol 164 mg/dl (50-199); Triglyceride 155 mg/dl (10-149); Very Low Density Lipoprotein 31 mg/dl (0-30); eGFR > 60.00
[2024-03-25 07:15] VITALS: BP 124/65
[2024-03-25] MEDS: SPIRIVA RESPIMAT 2.5 MCG 2 PUFF INH (07:54)
[2024-03-25] MEDS: FARXIGA 10 MG PO (08:16)
[2024-03-25] MEDS: TYLENOL 1000 MG PO ×3 (08:17→21:00)
[2024-03-25] MEDS: ELIQUIS 5 MG PO ×2 (08:17→21:01)
[2024-03-25] MEDS: TOPROL XL 12.5 MG PO ×2 (08:17→21:01)
[2024-03-25] MEDS: LASIX 20 MG PO (08:17)
[2024-03-25] MEDS: PROTONIX 40 MG PO (08:17)
[2024-03-25 11:04] VITALS: BP 121/69
--- NOTE | 2024-03-25 11:29 | W.PN.HOSP.TC ---
Today's Communication/Plan
-
Continue with diuretic
Bronchodilators
Wean oxygen as tolerated
Continue with goal-directed medical therapy
PT/OT
Assessment / Plan
Assessment / Plan
A/P: Patient is an 83y F with PMH significant for hypertension, hypothyroidism, breast cancer and A-Fib who presents to ED complaining of chest pain.
Atypical Chest Pain
- Pain is mostly isolated to the L chest and is similar to multiple prior episodes that she has had per her daughter.
- PT / OT evaluations for mobility / ROM.
- Follow for new / worsening symptoms.
- Follow for clinical improvement.
- Pain seems related to prior breast surgery / radiation as symptoms started shortly after that time.
- Troponin negative x 3.
- CT done today negative for PE. Lobulated splenic contour with some areas of low attenuation as above, question previous injury or previous infarct. Acuity of these findings is indeterminate, new as compared with 2020.
Paroxysmal Atrial Fibrillation
- Stable.
- Prior h/o A-Fib, but not known to have recurred since prior DCCV (2013).
- Monitor on tele.
- Begin low dose Toprol for now and titrate as needed.
- Agree w/ Eliquis. Discussed with patient that she is at increased risk of having a CVA. Patient with elevated Micah Vasc score. This was discussed with patient. Who is awake alert and oriented. Patient agreed to be started on Eliquis and
states she wants to reduce her risk of having stroke.
- Cardiology evaluation for additional recommendations.
Acute hypoxic respiratory sufficiency likely secondary acute HFpEF
-Started on Lasix. Started on SGLT2 inhibitor. Continue with metoprolol. On Eliquis.
-Strict I's and O's Daily weights.
Acute kidney injury likely secondary to prerenal versus NSAIDs
-DC Toradol and ibuprofen
-Trend BMP. Cr stabilzied. No urine eos seen.
N/V
- This was clearly secondary to narcotic pain medication administered in the ED.
- Continue supportive care, antiemetics, etc.
- Tolerating diet
Benign Hypertension
- Follow BP on newly added Toprol. BP well controlled with 121/69
- Hold other meds for now pending BP trend / formal med rec.
Hypothyroidism
- Continue with supplementation of Synthroid, repeat TFT in 4 to 6 weeks as outpatient.
COPD
Acute hypoxic respiratory insufficiency
- Chest x-ray was negative for infiltrates or pulmonary edema.
- duoneb TID for now.
- O2 as needed and wean off as able.
Obesity due to excess calories
- Affects all aspects of care.
- Encourage healthy diet and activity as tolerated with goal of weight loss.
Prediabetes
-A1c 6.3. Changed to carb restricted diet for now. Can benefit FROM metformin once creatinine improves
Hyperkalemia
-resolved
DVT Prophylaxis: SCDs/eliquis
Code Status: Full
Anticipated Discharge: Within 24 hours
Subjective/Interval History
-
Date of Service: March 25, 2024
Remains on 3L oxygen
pain has improved
in better spirits today
Objective Data
-
Labs:
Laboratory Results
03/25/24
05:19
Sodium 139
Potassium 5.1
Chloride 101
Carbon Dioxide 30
BUN 20 H
Creatinine 0.7
Glucose 112 H
Calcium 9.1
Vital Signs:
Vital Signs
Temp Pulse Resp BP Pulse Ox
97.8 F 85 18 121/69 96
03/25/24 11:04 03/25/24 11:04 03/25/24 11:04 03/25/24 11:04 03/25/24 11:04
I&O
03/24/24 03/25/24 03/26/24
06:59 06:59 06:59
Intake Total 840 / 840 1080 / 1080
Balance 840 / 840 1080 / 1080
Physical Exam
-
General: No Apparent Distress and Conversant
HEENT: Normocephalic, Atraumatic and Oxygen
Respiratory: Decreased Breath Sounds
Cardiac: Regular Rhythm, S1/S2 and Other (TTP at left lower costochrondal junction )
GI: Soft, Nontender, Nondistended and Normal Bowel Sounds
Genito-urinary: No Costovertebral Tender
Musculoskeletal: Edema, Right Lower Extrem (Trace) and Edema, Left Lower Extrem (Trace)
Neuro: Awake, Alert, Oriented, AO x 3 and No Motor Deficits
Psych: Calm and Intact Judgement/Insight
Data Reviewed
-
Total Time Spent with Patient (in minutes): 51
[2024-03-25] MEDS: DUONEB 3 ML INH ×2 (14:33→19:56)
[2024-03-25 15:08] VITALS: BP 160/77
--- NOTE | 2024-03-25 16:03 | W.PN.CARDCBS ---
Addendum entered and electronically signed by Zafar De La Torre DO 03/25/24 18:08:
I saw and examined the patient.
The Non Cdl Driver's note was reviewed and I agree with the note.
Comment:
Cont rate control for AFib, which is now persistent.
Cont Eliquis, started this admit
Cont lasix 20 mg daily PO started this admit
Outpt follow up to be arranged.
Original Note:
Today's Communication / Plan
-
Plan for Afib is rate control and OAC
New to Lasix PO
Impression / Plan
-
PCP: Dr. Jason Borges
Cardiology: Dr. NASEEM Kruse, last seen 04/01/15
Impression:
Presented 03/22/2024 with chest pain.
Recurrence of paroxysmal Afib
Paroxysmal Afib, initially diagnosed in the setting of gastric volvulus and hiatal hernia 2013
Chronic left sided chest pain
h/o breast cancer with left lumpectomy and radiation 2014
HTN
Hyperglycemia
Hyperlipidemia
COPD
CKD 3a
Hypothyroid with elevated TSH and low normal free T4
Chronic HFpEF
Echo 09/12/2021: EF 55%, no significant valve disease
Echo 03/23/24: EF 55 to 60%. Mild concentric LVH. Severely dilated left atrium. Mild MR
Plan:
-Patient wished to start OAC and so Eliquis 5 mg BID (age 83, Cre 0.8, wt 92.08 kg) was started 03/24/24. Of note during call with patient's daughter, Luz Marina, on 03/23/24 she was more interested in natural alternatives to OAC for the patient, but
patient is capable of making her own decisions and elected to start OAC
-Afib has been persistent this admission. Patient with known paroxysmal Afib and patient denies palpitations. Last documented Afib was in the setting of hiatal hernia and volvulus in 2013 that resulted in LA compression and then no recurrence
following surgery for GI problems.
-New to Toprol XL 12.5 mg BID. Will pursue rate control strategy given age and comorbidities.
-Chest pain is chronic and has resulted in ER visits and admissions int he past as well. Might be related to previous lumpectomy and radiation. No plans for further cardiac work-up at this time.
-New to Lasix 20 mg PO daily for chronic HFpEF. No doses of Lasix IV given.
-Outpatient dose of amlodipine 5 mg daily is on hold. Blood pressure is reasonably controlled with Toprol. Continue to monitor the need for amlodipine with consideration of starting low-dose Lasix
-Patient noted to be hyperglycemic. HgbA1c 6.3%. New to Farxiga 10 mg daily
-Continue atorvastatin 10 mg. LDL 95
HPI 03/23/2024:
Patient came to [facility] yesterday with chest pain and was admitted with recurrence of Afib and cardiology has been consulted. Patient says that left sided chest pain started about an hour prior to admission. Patient had been experiencing right sided
chest pain for a few days prior that had resolved prior to the start of the left sided chest pain. Patient thinks this is similar to previous left sided chest pains. Patient has been seen in the ER and had admissions for chest pain about 1-2 times a
year since her left breast cancer surgery and radiation in 2014. Patient isn't sure this is the exact same pain and so she asked to come to [facility] last night. Troponin has been serially undetectable. Chest pain treated simultaneously with Dilaudid and
Toradol and no real improvement so another dose of Dilaudid was given an hour later resulting in N/V and questionable pain relief. Patient denies exertional chest pain. Cardiology also asked to see patient for recurrence of Afib. Patient with Afib
in 2013 in the setting of left atrial compression by a hiatal hernia and gastric volvulus at the time and following hernia/volvulus surgery the patient has not had documented recurrence of Afib. ECGs from admissions and ER visits over the years
have always been in SR. Patient wore a week long monitor in 2014 without Afib as well. Patient denies palpitations. Patient was not historically anticoagulated due to lack of recurrence of Afib and the thought that her Afib was situational in 2015
due to the mechanical LA compression that was resolved with surgery.
Progress Note - Engineer Booster And Exhauster
Subjective
Date of Service: March 25, 2024
She thinks she is doing well
Objective
Labs:
03/23/24 07:57
03/25/24 05:19
Labs
Hgb 14.1 g/dL (12.0-16.0) 03/23/24 07:57
Hct 46.7 % (37.0-47.0) 03/23/24 07:57
Plt Count 452 10^3/uL (130-400) H 03/23/24 07:57
Sodium 139 mmol/L (135-145) 03/25/24 05:19
Potassium 5.1 mmol/L (3.5-5.1) 03/25/24 05:19
BUN 20 mg/dl (7-17) H 03/25/24 05:19
Creatinine 0.7 mg/dL (0.6-1.0) 03/25/24 05:19
Glucose 112 mg/dl (70-99) H 03/25/24 05:19
Troponins
03/23/24 03/23/24 03/23/24
00:31 03:16 06:21
Troponin I < 0.012 < 0.012 Cancelled
03/23/24
07:57
Troponin I < 0.012
Vital Signs and I&O:
Vital Signs
Temp Pulse Resp BP Pulse Ox
98.4 F 90 17 160/77 96
03/25/24 15:08 03/25/24 15:08 03/25/24 15:08 03/25/24 15:08 03/25/24 15:08
Vital Signs
Temp Pulse Resp BP Pulse Ox
98.4 F 90 17 160/77 96
03/25/24 15:08 03/25/24 15:08 03/25/24 15:08 03/25/24 15:08 03/25/24 15:08
Intake & Output
03/23/24 03/24/24 03/25/24 03/26/24
06:59 06:59 06:59 06:59
Intake Total 840 / 840 1080 / 1080
Balance 840 / 840 1080 / 1080
Physical Exam
Physical Exam
GEN: AAO to person, place and situation
HEENT: MMM
LUNGS: On 2 L NC. No audible wheeze
CV: Afib on tele.
ABD: soft, BS+, NT, ND
EXT: No clubbing, cyanosis or lesions B/L. +1 non-pitting B/L LE edema
NEURO: Gross non-focal
SKIN: Warm, dry and pink. No rash
[2024-03-25] MEDS: LIPITOR 10 MG PO (17:05)
--- NOTE | 2024-03-25 17:16 | CM ---
Spoke with pt in room.
Offered VN at [facility] . Pt declined VN.
Requested home oxygen test. Pt is on new oxygen here.
PLAN Home no needs
Watch for home oxygen
[2024-03-25 19:10] VITALS: BP 136/70
[2024-03-25 23:06] VITALS: BP 115/67
[2024-03-26 03:05] VITALS: BP 121/72
[2024-03-26] MEDS: SYNTHROID 88 MCG PO (05:12)
[2024-03-26 06:00] VITALS: BMI 33.8
[2024-03-26 07:59] LABS: Blood Urea Nitrogen 20 mg/dl (7-17); Calcium 9.3 mg/dl (8.4-10.2); Carbon Dioxide 31 mmol/L (22-30); Chloride 100 mmol/L (98-107); Estimated Creatinine Clearance 51 ml/min; Glucose 111 mg/dl (70-99); Potassium 4.4 mmol/L (3.5-5.1); Sodium 143 mmol/L (135-145); eGFR > 60.00
[2024-03-26] MEDS: DUONEB 3 ML INH (08:06)
[2024-03-26] MEDS: SPIRIVA RESPIMAT 2.5 MCG INH ×2 (08:06→08:08)
[2024-03-26 08:32] VITALS: BP 152/91
[2024-03-26] MEDS: PROTONIX 40 MG PO (08:36)
[2024-03-26] MEDS: TYLENOL 1000 MG PO (08:36)
[2024-03-26] MEDS: FARXIGA 10 MG PO (08:36)
[2024-03-26] MEDS: LASIX 20 MG PO (08:37)
[2024-03-26] MEDS: TOPROL XL 12.5 MG PO (08:37)
[2024-03-26] MEDS: ELIQUIS 5 MG PO (08:37)
--- NOTE | 2024-03-26 10:58 | W.PN.CARDCBS ---
Addendum entered and electronically signed by Nick Ennis MD 03/26/24 14:53:
I saw and examined the patient.
The Safety And Health Manager's note was reviewed and I agree with the note.
Comment: Briefly, 83-year-old woman presenting with chest discomfort found to have recurrence of paroxysmal atrial fibrillation
Received IV diuresis for heart failure with preserved ejection fraction and has been transitioned to oral Lasix
Overall appears euvolemic on exam
Remains in rate controlled atrial fibrillation here
New to Toprol XL, would continue on discharge
Was not previously anticoagulated, plan to discharge on Eliquis for cardioembolic prophylaxis
Stable cardiac status
Outpatient follow-up arranged
Original Note:
Today's Communication / Plan
-
New to Lasix 20 mg PO daily
New to Eliquis 5 mg BID
Impression / Plan
-
PCP: Dr. Jason Borges
Cardiology: Dr. NASEEM Kruse, last seen 04/01/15
Impression:
Presented 03/22/2024 with chest pain.
Recurrence of paroxysmal Afib
Paroxysmal Afib, initially diagnosed in the setting of gastric volvulus and hiatal hernia 2013
Chronic left sided chest pain
h/o breast cancer with left lumpectomy and radiation 2014
HTN
Hyperglycemia
Hyperlipidemia
COPD
CKD 3a
Hypothyroid with elevated TSH and low normal free T4
Chronic HFpEF
Echo 09/12/2021: EF 55%, no significant valve disease
Echo 03/23/24: EF 55 to 60%. Mild concentric LVH. Severely dilated left atrium. Mild MR
Plan:
-Patient feels well, less SOB with addition of Lasix 20 mg PO daily this admission. No IV doses of diuretic given. Managed as chronic HFpEF. Patient should continue with Lasix 20 mg PO daily upon d/c to home.
-Hypoxia improved following addition of Lasix
-Potassium 4.4 on 03/26/24 and has been stable, no need for KCl at time of d/c.
-EF 55% by echo this admission.
-Afib has been persistent this admission. Patient with known paroxysmal Afib in the setting of hiatal hernia and volvulus in 2013 that resulted in LA compression. Following GI surgery there were no documented recurrences and patient was not on OAC.
Back in Afib that is rate controlled and asymptomatic this admission.
-Patient wished to start OAC and so Eliquis 5 mg BID (age 83, Cre 0.8, wt 92.08 kg) was started 03/24/24. Of note during call with patient's daughter, Luz Marina, on 03/23/24 she was more interested in natural alternatives to OAC for the patient, but
patient is capable of making her own decisions and elected to start OAC
-New to Toprol XL 12.5 mg BID. Will pursue rate control strategy given age and comorbidities. Tele reviewed by me 03/26/24 and HR control is suboptimal. BP 152/91 on 03/26/24 AM. Will increase Toprol XL to 25 mg BID.
-Chest pain is chronic and has resulted in ER visits and admissions int he past as well. Might be related to previous lumpectomy and radiation. No plans for further cardiac work-up at this time.
-Outpatient dose of amlodipine 5 mg daily is on hold. Will not restart to allow for higher dose Toprol XL and new Lasix.
-Patient noted to be hyperglycemic. HgbA1c 6.3%. New to Farxiga 10 mg daily
-Continue atorvastatin 10 mg. LDL 95
-Patient is stable for d/c to home and cardiology f/u arranged.
HPI 03/23/2024: Patient came to [facility] yesterday with chest pain and was admitted with recurrence of Afib and cardiology has been consulted. Patient says that left sided chest pain started about an hour prior to admission. Patient had been
experiencing right sided chest pain for a few days prior that had resolved prior to the start of the left sided chest pain. Patient thinks this is similar to previous left sided chest pains. Patient has been seen in the ER and had admissions for
chest pain about 1-2 times a year since her left breast cancer surgery and radiation in 2014. Patient isn't sure this is the exact same pain and so she asked to come to [facility] last night. Troponin has been serially undetectable. Chest pain treated
simultaneously with Dilaudid and Toradol and no real improvement so another dose of Dilaudid was given an hour later resulting in N/V and questionable pain relief. Patient denies exertional chest pain. Cardiology also asked to see patient for
recurrence of Afib. Patient with Afib in 2013 in the setting of left atrial compression by a hiatal hernia and gastric volvulus at the time and following hernia/volvulus surgery the patient has not had documented recurrence of Afib. ECGs from
admissions and ER visits over the years have always been in SR. Patient wore a week long monitor in 2014 without Afib as well. Patient denies palpitations. Patient was not historically anticoagulated due to lack of recurrence of Afib and the
thought that her Afib was situational in 2014 due to the mechanical LA compression that was resolved with surgery.
Progress Note - Elementary School Librarian
Subjective
Date of Service: March 26, 2024
Feels much better, less SOB
Objective
Labs:
03/23/24 07:57
03/26/24 06:56
Labs
Hgb 14.1 g/dL (12.0-16.0) 03/23/24 07:57
Hct 46.7 % (37.0-47.0) 03/23/24 07:57
Plt Count 452 10^3/uL (130-400) H 03/23/24 07:57
Sodium 143 mmol/L (135-145) 03/26/24 06:56
Potassium 4.4 mmol/L (3.5-5.1) 03/26/24 06:56
BUN 20 mg/dl (7-17) H 03/26/24 06:56
Creatinine 0.9 mg/dL (0.6-1.0) 03/26/24 06:56
Glucose 111 mg/dl (70-99) H 03/26/24 06:56
Vital Signs and I&O:
Vital Signs
Temp Pulse Resp BP Pulse Ox
97.6 F 85 16 152/91 95
03/26/24 08:32 03/26/24 08:32 03/26/24 08:32 03/26/24 08:32 03/26/24 08:32
Vital Signs
Temp Pulse Resp BP Pulse Ox
97.6 F 85 16 152/91 95
03/26/24 08:32 03/26/24 08:32 03/26/24 08:32 03/26/24 08:32 03/26/24 08:32
Intake & Output
03/24/24 03/25/24 03/26/24 03/27/24
06:59 06:59 06:59 06:59
Intake Total 840 / 840 1080 / 1080 1620 / 1620
Output Total 4440 / 4440
Balance 840 / 840 1080 / 1080 -2820 / -2820
Physical Exam
Physical Exam
GEN: AAO to person, place and situation
HEENT: MMM
LUNGS: No audible wheeze
CV: Afib on tele.
ABD: soft, BS+, NT, ND
EXT: Trace non-pitting B/L LE edema
NEURO: Gross non-focal
SKIN: No rash
--- NOTE | 2024-03-26 11:00 | CM ---
Addendum entered by Shraddha Payton 03/26/24 11:58:
Free month Eliquis coupon provided to patient.
Original Note:
Patient seen bedside.
denies home care needs.
Daughter will transport when ready for d/c.
IMM completed.
Plan home no needs.
[2024-03-26 11:42] VITALS: BP 127/74
--- NOTE | 2024-03-26 11:42 | W.PN.HOSP.TC ---
Today's Communication/Plan
-
dc home
GDMT
OP cards f/u
bmp with pcp in 1 week
Assessment / Plan
Assessment / Plan
A/P: Patient is an 83y F with PMH significant for hypertension, hypothyroidism, breast cancer and A-Fib who presents to ED complaining of chest pain.
Atypical Chest Pain
- Pain is mostly isolated to the L chest and is similar to multiple prior episodes that she has had per her daughter.
- PT / OT evaluations for mobility / ROM.
- Follow for new / worsening symptoms.
- Follow for clinical improvement.
- Pain seems related to prior breast surgery / radiation as symptoms started shortly after that time.
- Troponin negative x 3.
- CT done negative for PE. Lobulated splenic contour with some areas of low attenuation as above, question previous injury or previous infarct. Acuity of these findings is indeterminate, new as compared with 2020.
Paroxysmal Atrial Fibrillation
- Stable.
- Prior h/o A-Fib, but not known to have recurred since prior DCCV (2013).
- Monitor on tele.
- Begin low dose Toprol for now and titrate as needed.
- Agree w/ Eliquis. Discussed with patient that she is at increased risk of having a CVA. Patient with elevated Micah Vasc score. This was discussed with patient. Who is awake alert and oriented. Patient agreed to be started on Eliquis and
states she wants to reduce her risk of having stroke.
- Cardiology evaluation for additional recommendations.
Acute hypoxic respiratory sufficiency likely secondary acute HFpEF
-Started on Lasix. Started on SGLT2 inhibitor. Continue with metoprolol. On Eliquis.
-Strict I's and O's Daily weights. resolved stable on room air. Home o2 eval and did not qualify for oxygen.
Acute kidney injury likely secondary to prerenal versus NSAIDs
-DC Toradol and ibuprofen
-Trend BMP. Cr stabilzied. No urine eos seen.
N/V
- This was clearly secondary to narcotic pain medication administered in the ED.
- Continue supportive care, antiemetics, etc.
- Tolerating diet
Benign Hypertension
- Follow BP on newly added Toprol. BP well controlled with 127/74
- Hold other meds for now pending BP trend / formal med rec.
Hypothyroidism
- Continue with supplementation of Synthroid, repeat TFT in 4 to 6 weeks as outpatient.
COPD
Acute hypoxic respiratory insufficiency
- Chest x-ray was negative for infiltrates or pulmonary edema.
- duoneb TID for now.
- O2 as needed and wean off as able.
Obesity due to excess calories
- Affects all aspects of care.
- Encourage healthy diet and activity as tolerated with goal of weight loss.
Prediabetes
-A1c 6.3. Changed to carb restricted diet for now. Can benefit FROM metformin once creatinine improves
Hyperkalemia
-resolved
DVT Prophylaxis: SCDs/eliquis
Code Status: Full
More than 30 minutes spent in discharge including
Final examination of the patient
Summarizing hospital stay
Instructions for continuing care to all relevant caregivers
Preparation of discharge records, prescriptions, and referral forms
Total time spent (in minutes): 51
Anticipated Discharge: Today
Subjective/Interval History
-
Date of Service: March 26, 2024
off oxygen
stable on room
denies chest pain
Objective Data
-
Labs:
Laboratory Results
03/26/24
06:56
Sodium 143
Potassium 4.4
Chloride 100
Carbon Dioxide 31 H
BUN 20 H
Creatinine 0.9
Glucose 111 H
Calcium 9.3
Vital Signs:
Vital Signs
Temp Pulse Resp BP Pulse Ox
97.6 F 85 16 152/91 95
03/26/24 08:32 03/26/24 08:32 03/26/24 08:32 03/26/24 08:32 03/26/24 08:32
I&O
03/25/24 03/26/24 03/27/24
06:59 06:59 06:59
Intake Total 1080 / 1080 1620 / 1620
Output Total 4440 / 4440
Balance 1080 / 1080 -2820 / -2820
Physical Exam
-
General: No Apparent Distress and Conversant
HEENT: Normocephalic and Atraumatic
Respiratory: Decreased Breath Sounds
Cardiac: Regular Rhythm, S1/S2 and Other (TTP at left lower costochrondal junction )
GI: Soft, Nontender, Nondistended and Normal Bowel Sounds
Genito-urinary: No Costovertebral Tender
Musculoskeletal: Edema, Right Lower Extrem (Trace) and Edema, Left Lower Extrem (Trace)
Neuro: Awake, Alert, Oriented, AO x 3 and No Motor Deficits
Psych: Calm and Intact Judgement/Insight
--- NOTE | 2024-03-26 11:46 | W.DCSUMMARY ---
Discharge Summary
Discharge Data
Date of Admission: 03/24/24
Date of Discharge: 03/26/24
-
Pending Results: No
Hospital Course
83 yo female past medical history of hypertension, hypothyroidism breast cancer status post surgery, suspected COPD Obesity due to excess calories who is presenting from home with complaint of left-sided chest pain. Patient had previous multiple
hospitalization for similar chest pain. Patient troponin were checked and found to be negative x 3. CT chest was negative for pulmonary embolism. Patient was also found to be persistent atrial fibrillation rapid ventricular response. Patient
was started on Toprol. Patient agreed to be started on Eliquis. Patient was evaluated by cardiology. Patient underwent echocardiogram. Patient was fluid overloaded on physical examination and was started on Lasix. Patient was started on 20 mg
p.o. Lasix with significant urinary output. Creatinine was stable. Patient was also started on SGLT2 inhibitor. Patient had nausea vomiting on admission which resolved and was tolerating diet. Patient required oxygenation which is able to be
weaned off to room air. Patient did not qualify for home oxygenation. Patient was eval by physical and Occupational Therapy with plan for Home VN on discharge.
Discharge Plan
-
Patient Disposition: Home with Home Care
Discharge Diagnosis/Procedures: Atypical musculoskeletal chest pain
Paroxysmal atrial fibrillation new onset
Acute hypoxic respiratory insufficiency secondary to acute HFpEF
Acute kidney injury
Nausea vomiting
Condition: Fair
Diet: 2 Gram Sodium and Restrict fluids to 48 oz
Activity: With assistance and As tolerated
Driving Restrictions: Not until seen by your Dr
Blood Work: BMP in 7 days via primary doctor.
Other Services: VN
Specialty Instructions: Weigh Daily- Call MD for wt gain/loss 3 lbs overnight/5 lbs in 1 week
Referrals:
Jason Borges MD, Resident [Family Practice Resident Year2] - in one to two weeks
Je Kruse MD [Active] - 04/09/24 9:40 am (You have an appt to see Dr. Kruse's nurse practitioner, Candace, at the [facility] on 04/09/24 at 9:40 AM. Please call [phone] if you need to reschedule.)
Prescriptions:
New
Spiriva Respimat 2.5 mcg/actuation Mist
2 puff inhalation R DAILY 30 Days Qty: 4 0RF
furosemide 20 mg Tablet
20 mg PO DAILY 30 Days Qty: 30 0RF
Eliquis 5 mg Tablet
5 mg PO BID 30 Days Qty: 60 0RF
Jardiance 10 mg tablet
10 mg PO DAILY Qty: 30 0RF
metoprolol succinate 25 mg Tablet Extended Release 24 Hr
25 mg PO BID Qty: 60 11RF
Continued
levothyroxine 88 MCG tablet
88 mcg PO DAILY
simvastatin 20 mg tablet
20 mg PO HS
acetaminophen 325 mg Capsule
650 mg PO Q6H PRN (Reason: pain)
budesonide-formoterol [Symbicort] 160-4.5 mcg/actuation Hfa Aerosol Inhaler
2 puff INHALATION BID
Discontinued
amlodipine 5 MG tablet
5 mg PO DAILY Qty: 60 0RF
Discharge Orders:
Discharge Patient (As Directed); Ordered 03/26/24
Ordered By: Joseph Allan
Discharge Date and Time
Print Language: SOMALI
[2024-03-26] MEDS: PREVNAR 20 0.5 ML IM (13:36)
[2024-03-26] MEDS: FLUAD (65 yr+) 2024-2025 FORMULA 0.5 ML IM (13:38)
[2024-03-26] MEDS: DUONEB INH (13:53)
== END 2024-03-26 15:45 | disposition home health service (06) | DRG 308 ==
LOC: 3 WEST ACU 12:05
PROVIDERS: Clinical Nurse Specialist Family Health; Physician Assistant Medical; ADMITTING PHYSICIAN Hospitalist; ATTENDING PHYSICIAN Hospitalist; EMERGENCY PHYSICIAN Emergency Medicine; OTHER PHYSICIAN Internal Medicine Cardiovascular Disease
DX: I48.0 Paroxysmal atrial fibrillation (principal); I50.31 Acute diastolic (congestive) heart failure; N17.9 Acute kidney failure, unspecified; I13.0 Hypertensive heart and chronic kidney disease with heart failure and stage 1 through stage 4 chronic kidney disease, or unspecified chronic kidney disease; R07.89 Other chest pain; R09.02 Hypoxemia; I50.9 Heart failure, unspecified; N18.31 Chronic kidney disease, stage 3a; E03.9 Hypothyroidism, unspecified; J44.9 Chronic obstructive pulmonary disease, unspecified; R06.89 Other abnormalities of breathing; E66.09 Other obesity due to excess calories; Z68.33 Body mass index [BMI] 33.0-33.9, adult; E87.5 Hyperkalemia
CPT/HCPCS: 71046; 71275; 74177; 80048; 80053; 80061; 81099; 82570; 83036; 83880; 84300; 84439; 84443; 84484; 85025; 85027; 85379; 85652; 90662; 90677; 93005; 93306; 94640; 96374; 96375; 96376; 97110; 97116; 97162; 97167; 97530; 99285; G0008; G0009; Q9967

== ENCOUNTER 2024-05-08 13:54 | Inpatient (IN) | payer OTHER, SELFPAY ==
[2024-05-06] VITALS (7 sets, daily range): BP systolic 109–154; BP diastolic 61–98; BMI 34.3; BMI 34.4
[2024-05-06 12:20] LABS: COVID-19 Antigen Negative (Negative)
--- NOTE | 2024-05-06 13:40 | ED.GENMED ---
History of Present Illness
General
Chief Complaint: Breathing Problem
Source: patient
Exam Limitations: none
Time Seen by Provider: 05/06/24 13:32
Nursing documentation reviewed up to this point in time: agreed with
History of Present Illness
History of Present Illness:
83 yo female w h/o HTN, HLD, Colitis, hypothyroidism, breast cancer status postlumpectomy, COPD, obese presents from home with complaint of cough, chest congestion past 4 days with coughing fits. Also yellow sputum.
Past History
Past History
ED Past Medical History: Arrthythmia (Atrial fib), Cancer (Breast CA), HTN, Hypercholesterolemia, Hypothyroidism and Other (Hiatal hernia, Colitis, Macular degeneration, )
ED Past Surgical History: Gynecological (Fibroid removed, ) and Other (Lumpectomy left breast, hiatal hernia repair)
Social History
Tobacco: Former smoker
Alcohol: None
Drug: None
Personal:
Living: with family
Family History
Family History: Unable to obtain
Review of Systems
Review of Systems
Allergies reviewed?: Yes
All Other Systems: ROS reviewed and negative except as documented in HPI and ROS
Constitutional: Reports fatigue; Denies fever
Respiratory: Reports cough and trouble breathing
Cardiac: Denies chest pain
ABD/GI: Denies abdominal pain, nausea, vomiting or diarrhea
: Denies dysuria, frequency or difficulty voiding
Musculoskeletal: Reports no symptoms
Skin: Reports no symptoms
Neurological: Reports no symptoms
Phy Exam
Physical Exam
Physical Exam:
GENERAL: No acute distress. A&Ox3.
CONSTITUTIONAL: Afebrile.
EYES: clear, conjunctivae normal
ENMT: moist mucus membranes, Pharynx nl, sinus stuffiness
RESPIRATORY: Regular respirations, nonlabored, lungs with coarse breath sounds and low pitched and expiratory wheezes
CARDIOVASCULAR: Regular rate and rhythm, no murmurs, no rubs.
GI: Soft, nontender, normal BS
MUSCULOSKELETAL: Moves with ease. Well perfused.
SKIN: Warm, dry, pink
PSYCH: Normal mood and affect. Well kept, interactive and appropriate
NEUROLOGIC: Awake, alert and oriented. No focal neurological deficits
Scores
Heart Failure Risk
Heart Failure Risk Score: Not Applicable
Course
Orders/Labs/Results
Orders:
Orders
05/06/24 11:26
EKG [Electrocardiogram (*1)] Urgent
Reason for Study: Shortness of Breath
CR Chest - 2 Views Urgent
Comment:
Reason For Exam: cough
05/06/24 11:27
EKG- Treatment ONCE
05/06/24 11:49
COVID-19 Antigen Urgent
Source: Nasal Swab
Influenza A+B Rapid Molecular Urgent
MARTHA Source: Nasal Swab
Specimen Description:
05/06/24 13:55
Complete Blood Count/With Diff Urgent
05/06/24 14:06
Ipratropium/Albuterol Sulfate [Duoneb] 3 ml INH R NOW STA
05/06/24 14:24
Comprehensive Metabolic Panel Urgent
NT-proBNP Urgent
Comment: ADDON
05/06/24 Dinner
Cholesterol Lowering
At Your Request: Full Participation
Fluid Restriction: 1800 mL/day (60 oz)
Cholesterol Lowering: Sodium, 2 Gram
05/06/24 16:19
Doxycycline [Vibramycin] 100 mg PO NOW STA
05/06/24 16:20
Dexamethasone [Decadron] 10 mg PO NOW STA
05/06/24 16:28
Dexamethasone Sod Phosphate [Decadron] 6 mg IV NOW STA
05/06/24 17:08
Admit/Transfer Patient As Directed
Co-Sign Provider:
Level of Care: Observation services
Assign to:: Medical/Surgical
Physician / Group: Phoenix Lezama
Diagnosis: viral bronchitis, COPD Exacerbation
PRN Pain Medication Management As Directed
May give lesser potent ordered pain med per pt: Yes
preference::
Protocol:: Medication orders for pain may be administered in a
manner that supports deferring to patient preference
when the pt is:
- Requesting an ordered lesser potent pain medication.
Least to most potent pain medications are defined
as: acetaminophen < NSAID < tramadol < opioids
(morphine, oxycodone, hydromorphone).
- Requesting a lesser dose of the same medication IF
ORDERED.
- Requesting a less intrusive route of administration
if both routes are prescribed by the provider (PO <
IV).
05/06/24 17:10
Code Status As Directed
Resuscitation Status: Full Code
05/06/24 19:31
Acetaminophen [Tylenol] 650 mg PO Q4HPRN PRN
Ipratropium/Albuterol Sulfate [Duoneb] 3 ml INH R Q4HPRN PRN
05/06/24 19:31
Activity As Directed
Activity Level: Out of Bed-Early Mobility
Intake/ Output As Directed
Frequency: Per unit guidelines
Vital Signs As Directed
Frequency: Per unit guidelines
Weight As Directed
Frequency: Daily
Copd Education [RESP] Routine
O2 Therapy [RESP] Routine
Titrate/Wean O2 to maintain O2 sat greater than (%): 93
Special Instructions: adjust, if necessary, to avoid hyperoxia in CO2 retainers.
Use High Flow O2 if necessary
DX Deep Vein Thrombosis Video Routine
05/06/24 20:00
Apixaban [Eliquis] 5 mg PO BID
Doxycycline [Vibramycin] 100 mg PO Q12
Guaifenesin [Mucinex] 600 mg PO Q12
Ipratropium/Albuterol Sulfate [Duoneb] 3 ml INH R QID
Metoprolol Xl [Toprol Xl] 25 mg PO BID
Tiotropium [place] 2.5 Mcg [Spiriva Respimat 2.5 Mcg] 2 puff INH R BID
05/07/24 04:00
Dexamethasone Sod Phosphate [Decadron] 4 mg IV Q12H
05/07/24 06:00
Levothyroxine [Synthroid] 88 mcg PO DAILY@0600
05/07/24 07:19
Basic Metabolic Panel IN AM
Complete Blood Count/With Diff IN AM
05/07/24 08:00
Amlodipine [Norvasc] 5 mg PO DAILY
Dapagliflozin [Farxiga] 10 mg PO DAILY
05/07/24 18:00
Enoxaparin Sodium [Lovenox] 40 mg SC QPM
05/08/24 08:00
Furosemide [Lasix] 20 mg PO MoWeFr@0800
Abnormal Lab Results
05/06/24 05/06/24
13:55 14:24
MCHC 31.8 L g/dL
(33.0-37.0)
RDW 15.1 H %
(11.5-14.5)
Absolute Monos (auto) 0.7 H 10^3/uL
(0.1-0.6)
Lymphocytes % 17.8 L %
(20.5-51.1)
Carbon Dioxide 21 L mmol/L
(22-30)
Glucose 104 H mg/dl
(70-99)
05/06/24 13:55
05/06/24 14:24
Vital Signs
Initial and Last Documented VS:
Initial Vital Signs
Temp Pulse Resp BP Pulse Ox
98.5 F 101 18 140/98 96
05/06/24 11:27 05/06/24 11:27 05/06/24 11:27 05/06/24 11:27 05/06/24 11:27
Last Documented Vital Signs
Temp Pulse Resp BP Pulse Ox
97.8 F 64 16 123/73 96
05/07/24 23:55 05/08/24 06:44 05/08/24 06:44 05/07/24 23:55 05/08/24 06:44
MDM/Problems Addressed
Differential Diagnosis Includes:
Covid, Flu PNA, Bronchitis, COPD exacerbation
MDM/Problems Addressed:
83 yo female w h/o HTN, HLD, Colitis, hypothyroidism, breast cancer status postlumpectomy, COPD, obese presents from home with complaint of cough, chest congestion past 4 days with coughing fits. Also yellow sputum.
CBC, CMP with no clinically significant abnormality
Covid neg
Flu neg
Chest x-ray radiology report read: IMPRESSION:
1. Mild to moderate cardiomegaly with central pulmonary vascular distention which appears chronic and unchanged.
2. Mild elevation of the anterior right hemidiaphragm.
3. Severe calcific atherosclerotic plaque in the thoracic and abdominal aorta.
Patient ambulated a short way down the hallway and her pulse ox dropped to 84%.
Plan: Admit for acute bronchitis with acute hypoxic respiratory failure
Hospitalist notified of admission
*Critical Care Note
Total Time (30-74mins, 75-104mins- exclusive of procedures): Not Applicable
ED Attending Note
-
Portions of this chart may have been created with voice recognition software.� Occasional wrong word or��sound alike� substitutions may have occurred due to the inherent limitations of voice recognition software.
Discharge Plan
Departure
Patient Disposition: Admit
Date of Disposition: 05/06/24
Time of Disposition: 16:28
Admit to: Med/Surg
Presentation/result/management discussed w/ accepting MD/DO: Hospitalist
Condition: Fair
Discharge Problem:
Acute bronchitis, Acute respiratory failure with hypoxemia
Interventions
Interventions:
*Risk Screen - Suicide Last Done: 05/06/24 20:28
*General Assessment Last Done: 05/06/24 11:27
*Neglect/Abuse Screening Last Done: 05/06/24 11:27
ED- Fall Risk Assessment Last Done: 05/06/24 14:16
*ED COVID-19 Vaccine History Last Done: 05/06/24 11:27
*Nursing Disposition Last Done: 05/06/24 19:36
ED- Cardiac Assessment Last Done: 05/06/24 14:16
ED- Pulmonary Assessment Last Done: 05/06/24 14:16
[2024-05-06] MEDS: DUONEB 3 ML INH (14:12)
[2024-05-06 14:14] LABS: % Basophils 0.4 % (0-2); % Eosinophils 0.2 % (0-6); % Immature Granulocytes 0.4 % (0-0.5); % Lymphocytes 17.8 % (20.5-51.1); % Monocytes 8.4 % (1.7-9.3); % Neutrophils 72.8 % (42.2-75.2); Absolute Lymphocytes 1.5 10^3/uL (1.2-3.4); Absolute Monocytes 0.7 10^3/uL (0.1-0.6); Absolute Neutrophils 6.2 10^3/uL (1.4-6.5); Hematocrit 46.6 % (37.0-47.0); Hemoglobin 14.8 g/dL (12.0-16.0); Mean Corp Hgb Conc. 31.8 g/dL (33.0-37.0); Mean Corpuscular Hgb 29.2 pg (27.0-31.0); Mean Corpuscular Volume 92.1 fL (81.0-99.0); Mean Platelet Volume 8.9 fL (7.4-10.4); Nucleated Red Blood Cells % 0 %; Platelet Count 377 10^3/uL (130-400); Red Blood Cell Count 5.06 10^6/uL (4.20-5.40); Red Cell Dist. Width 15.1 % (11.5-14.5); White Blood Cell Count 8.5 10^3/uL (4.8-10.8)
[2024-05-06 14:49] LABS: Sodium 138 mmol/L (135-145)
[2024-05-06 14:52] LABS: ALT (SGPT) 14 U/L (0-35); AST (SGOT) 20 U/L (14-36); Albumin 4.3 g/dl (3.5-5.0); Alkaline Phosphatase 105 U/L (38-126); Blood Urea Nitrogen 15 mg/dl (7-17); Calcium 9.3 mg/dl (8.4-10.2); Carbon Dioxide 21 mmol/L (22-30); Chloride 104 mmol/L (98-107); Estimated Creatinine Clearance 58 ml/min; Glucose 104 mg/dl (70-99); Potassium 4.5 mmol/L (3.5-5.1); Total Protein 7.3 g/dl (6.3-8.2); eGFR > 60.00
--- NOTE | 2024-05-06 16:31 | HPS.HSE ---
Family Physician
-
Family Physician: NOT KNOW UNKNOWN - PT DOES
Chief Complaint
-
cough/shotness of breath
History of Present Illness
Patient is a 83-year-old female with past medical history significant for hypertension, hyperlipidemia, hypothyroidism, COPD, CKD 3, HFpEF and atrial fibrillation who presented to [place] ED for evaluation of cough and chest congestion for past 4
days. Patient reports that she believes she had a fever yesterday, did not check but reports she was warm to touch and face was flush. Patient denies chills, chest pain, nausea, vomiting, constipation, diarrhea or urinary symptoms.
Medical History
Past Medical History
Past Medical History: Reports Other
Additional Past Medical History:
hypertension
COPD
hyperlipidemia
hypothyroidism
CKD 3
atrial fibrillation
HFpEF
Hx breast ca
Past Surgical History: Reports Other
Additional Past Surgical History:
Left breast lumpectomy (2014)
Hiatal hernia (2013)
Social History
Tobacco: Former Smoker
Alcohol: None
Drug: None
Living: With Family
Employment: Retired
Family History
Family History: Other (Sister: Lung ca)
Allergies / Home Medications
Allergies reflects when Allergies were last updated in [employer].
Home Medications with original date entered in [employer]
Allergy/Medication List:
Allergies
Allergy/AdvReac Type Severity Reaction Status Date / Time
erythromycin base Allergy Unknown Unknown Verified 05/06/24 11:27
[Erythromycin Base]
Home Medications
levothyroxine 88 mcg tablet 88 mcg PO DAILY Thyroid 01/26/19
acetaminophen 325 mg capsule 650 mg PO Q6HPRN PRN mild pain 03/23/24
apixaban 5 mg tablet (Eliquis) 5 mg PO BID 30 days #60 tabs 03/25/24
empagliflozin 10 mg tablet (Jardiance) 10 mg PO DAILY Heart Failure #30 tabs 03/25/24
metoprolol succinate 25 mg tablet,extended release 24 hr 25 mg PO BID Arrhythmia #60 tabs 03/26/24
amlodipine 5 mg tablet 5 mg PO DAILY 05/06/24
furosemide 20 mg tablet 20 mg PO MOWEFR 05/06/24
tiotropium bromide 2.5 mcg/actuation mist for inhalation (Spiriva Respimat) 2 puff inhalation R BID 05/06/24
Review of Systems
-
History Source: Patient
Constitutional: Reports Fever
EENT: Reports No Symptoms
Respiratory: Reports Cough and Trouble Breathing (shortness of breath)
Cardiac: Reports No Symptoms
Abdomen/GI: Reports No Symptoms
: Reports No Symptoms
Musculoskeletal: Reports No Symptoms
Skin: Reports No Symptoms
Neurological: Reports No Symptoms
Endocrine: Reports No Symptoms
Hematologic/Lymphatic: Reports No Symptoms
Psych: Reports No Symptoms
Physical Exam
Vital Signs
Vital Signs
Temp Pulse Resp BP Pulse Ox
98.5 F 100 19 154/64 95
05/06/24 11:27 05/06/24 14:15 05/06/24 14:15 05/06/24 13:35 05/06/24 14:16
Physical Exam
General: Well Developed, Well Nourished, No Apparent Distress, Comfortable and Conversant
HEENT: NormoCephalic, Moist mucous membranes, Atraumatic, PERRLA, [place] Conjunctivae, Nose Appears Normal, Ears Appear Normal and Neck Nontender
Respiratory: Clear, Rhonchi and Non Labored Respirations
Cardiac: S1/S2 and Regular Rhythm; No Murmur, Rub or Gallop
Breast: Deferred by me
GI: Soft, Non Tender, Non Distended and Normal Bowel Sounds; No Organomegaly
Rectal: Deferred by Provider
Genito-urinary: Deferred by me
Musculoskeletal: No Clubbing, No Cyanosis and No Edema
Skin: Warm and IV/Catheter Site; No Rash
Neuro: Awake, Alert, AO x 3 and Nonfocal/grossly intact
Hematologic/Lymphatic: No Lymphadenopathy
Psych: Calm and Intact Judgment/Insight
Laboratory Results
-
05/06/24 13:55
05/06/24 14:24
Laboratory Results
Total Bilirubin 1.0 mg/dl (0.2-1.3) 05/06/24 14:24
AST 20 U/L (14-36) 05/06/24 14:24
ALT 14 U/L (0-35) 05/06/24 14:24
Alkaline Phosphatase 105 U/L (38-126) 05/06/24 14:24
Data Reviewed
-
Diagnostic Radiology: Report Reviewed by me (CXR: 1. Mild to moderate cardiomegaly with central pulmonary vascular distention which appears chronic and unchanged. 2. Mild elevation of the anterior right hemidiaphragm. 3. Severe calcific
atherosclerotic plaque in the thoracic and abdominal aorta. )
Lab Data: Labs Reviewed by me
Impression/Plan
-
IMPRESSION/PLAN:
#Acute bronchitis
#COPD
CXR: 1. Mild to moderate cardiomegaly with central pulmonary vascular distention which appears chronic and unchanged.
2. Mild elevation of the anterior right hemidiaphragm.
3. Severe calcific atherosclerotic plaque in the thoracic and abdominal aorta.
Influenza and Covid negative
- Admit to med/surg
- dexamethasone
- DuoNeb
- Mucinex
#hypertension
- continue amlodipine, metoprolol
#hyperlipidemia
- continue simvastatin
#hypothyroidism
- continue levothyroxine
#CKD 3
BUN 15, Creat 0.8
- monitor BMP
#atrial fibrillation
- continue apixaban and metoprolol
#HFpEF
BNP 1660, does not present volume overloaded
ECHO (03/23/2024): Normal left ventricular size and systolic function. Mild concentric left
ventricular hypertrophy. No regional wall motion abnormalities are seen. LV
ejection fraction is 55-60%.
Diastolic function indeterminate due to atrial fibrillation.
Indexed LA volume is severely abnormal (> 48 mL/m2).
Mild mitral regurgitation.
- continue amlodipine, empagliflozin, furosemide, and metoprolol
- daily weights
#morbid obesity due to excessive calories
- affects all aspects of care
- encourage balanced lifestyle of diet and exercise
Code Status:
DVT Prophylaxis:
[2024-05-06 16:49] LABS: NT-proBNP 1660 pg/ml
[2024-05-06] MEDS: DECADRON 6 MG IV (16:50)
--- NOTE | 2024-05-06 17:11 | W.PN.UPDATE ---
Update Note
Progress Note Update
This is an addendum to the H&P written by Helene Gay on 05/06/2024. Patient seen and examined independently with PHARMACY CARE COORDINATOR.
83-year-old female past medical history of hypertension, hypothyroidism, breast cancer, paroxysmal atrial fibrillation, chronic HFpEF, COPD, obesity, prediabetes, CKD 3A, hypothyroidism, presenting with shortness of breath/productive cough over past
few days as well as sore throat and fever yesterday.
Examination there are bad bilateral rhonchi. Chest x-ray shows mild to moderate cardiomegaly central pulmonary vascular distention. Labs unremarkable. Cardiac BNP of 1600 but does not appear volume overloaded.
Presentation consistent with acute viral bronchitis/COPD exacerbation. Continue dexamethasone, DuoNebs. Continue doxycycline.
[2024-05-06] MEDS: ELIQUIS 5 MG PO (20:30)
[2024-05-06] MEDS: VIBRAMYCIN 100 MG PO (20:30)
[2024-05-06] MEDS: MUCINEX 600 MG PO (20:30)
[2024-05-06] MEDS: TOPROL XL 25 MG PO (20:30)
[2024-05-06] MEDS: SPIRIVA RESPIMAT 2.5 MCG 2 PUFF INH (20:52)
[2024-05-07] MEDS: DECADRON 4 MG IV ×2 (03:21→15:55)
[2024-05-07] MEDS: SYNTHROID 88 MCG PO (05:07)
[2024-05-07 05:43] VITALS: BMI 34.4
[2024-05-07 07:51] LABS: % Basophils 0.1 % (0-2); % Immature Granulocytes 0.4 % (0-0.5); % Lymphocytes 9.1 % (20.5-51.1); % Monocytes 2.6 % (1.7-9.3); % Neutrophils 87.8 % (42.2-75.2); Absolute Lymphocytes 0.7 10^3/uL (1.2-3.4); Absolute Monocytes 0.2 10^3/uL (0.1-0.6); Absolute Neutrophils 6.7 10^3/uL (1.4-6.5); Hematocrit 44.1 % (37.0-47.0); Hemoglobin 14.4 g/dL (12.0-16.0); Mean Corp Hgb Conc. 32.7 g/dL (33.0-37.0); Mean Corpuscular Hgb 29.1 pg (27.0-31.0); Mean Corpuscular Volume 89.3 fL (81.0-99.0); Mean Platelet Volume 9.1 fL (7.4-10.4); Nucleated Red Blood Cells % 0 %; Platelet Count 428 10^3/uL (130-400); Red Blood Cell Count 4.94 10^6/uL (4.20-5.40); Red Cell Dist. Width 14.8 % (11.5-14.5); White Blood Cell Count 7.6 10^3/uL (4.8-10.8)
[2024-05-07] MEDS: SPIRIVA RESPIMAT 2.5 MCG 2 PUFF INH ×2 (07:53→20:10)
[2024-05-07] MEDS: VIBRAMYCIN 100 MG PO ×2 (08:15→21:46)
[2024-05-07] MEDS: TOPROL XL 25 MG PO ×2 (08:16→21:46)
[2024-05-07] MEDS: FARXIGA 10 MG PO (08:16)
[2024-05-07] MEDS: ELIQUIS 5 MG PO ×2 (08:16→21:46)
[2024-05-07] MEDS: MUCINEX 600 MG PO ×2 (08:17→21:46)
[2024-05-07] MEDS: NORVASC 5 MG PO (08:17)
[2024-05-07 08:19] LABS: Blood Urea Nitrogen 18 mg/dl (7-17); Calcium 9.5 mg/dl (8.4-10.2); Carbon Dioxide 23 mmol/L (22-30); Chloride 103 mmol/L (98-107); Estimated Creatinine Clearance 56 ml/min; Glucose 149 mg/dl (70-99); Potassium 4.3 mmol/L (3.5-5.1); Sodium 138 mmol/L (135-145); eGFR > 60.00
[2024-05-07 08:41] VITALS: BP 115/73
--- NOTE | 2024-05-07 10:42 | CM ---
Patient seen bedside.
IA completed.
Patient lives with daughter in a 2 story home with 4 steps to enter.
No Assistive devices.
Drives locally only.
Patient with no hx VN
Not on home oxygen.
PCP: Jason Borges ([facility] in [place])
Pharmacy: [facility]
Plan: home, no needs anticiapted.
--- NOTE | 2024-05-07 12:35 | W.PN.HOSP.TC ---
Today's Communication/Plan
-
Monitor vital signs
see plan
Continue with steroids, nebs
Trial of Lasix
cw metoprolol
Assessment / Plan
Assessment / Plan
General: Well Developed, Well Nourished, No Apparent Distress, Comfortable and Conversant
HEENT: NormoCephalic, Moist mucous membranes, Atraumatic, PERRLA, [place] Conjunctivae
Respiratory: Clear, Rhonchi and Non Labored Respirations
Cardiac: S1/S2 and Regular Rhythm
GI: Soft, Non Tender, Non Distended and Normal Bowel Sounds
Musculoskeletal: No Edema
Neuro: Awake, Alert, AO x 3 and Nonfocal/grossly intact
Psych: Calm and Intact Judgment/Insight
Acute bronchitis
#COPD exacerbation
CXR: 1. Mild to moderate cardiomegaly with central pulmonary vascular distention which appears chronic and unchanged.
2. Mild elevation of the anterior right hemidiaphragm.
3. Severe calcific atherosclerotic plaque in the thoracic and abdominal aorta.
Influenza and Covid negative
- dexamethasone
- DuoNeb
- Mucinex
#hypertension
- continue amlodipine, metoprolol
#hyperlipidemia
- continue simvastatin
#hypothyroidism
- continue levothyroxine
#CKD 3
BUN 15, Creat 0.8
- monitor BMP
#atrial fibrillation
- continue apixaban and metoprolol
#HFpEF
Does not appear to be in volume overload however proBNP high
Trial of Lasix
ECHO (03/23/2024): Normal left ventricular size and systolic function. Mild concentric left
ventricular hypertrophy. No regional wall motion abnormalities are seen. LV
ejection fraction is 55-60%.
Diastolic function indeterminate due to atrial fibrillation.
Indexed LA volume is severely abnormal (> 48 mL/m2).
Mild mitral regurgitation.
- continue amlodipine, empagliflozin, furosemide, and metoprolol
- daily weights
#morbid obesity due to excessive calories
- affects all aspects of care
- encourage balanced lifestyle of diet and exercise
DVT Prophylaxis:
Eliquis
Code Status:
Full code
I spent a total of 51 minutes with the patient or on the floor. More than 50% of this time involved counseling and coordination of care.
Anticipated Discharge: 24 - 48 hours
Subjective/Interval History
-
Date of Service: May 07, 2024
denies pain
Objective Data
-
Labs:
Laboratory Results
05/07/24
07:19
WBC 7.6
Hgb 14.4
Hct 44.1
Plt Count 428 H
Sodium 138
Potassium 4.3
Chloride 103
Carbon Dioxide 23
BUN 18 H
Creatinine 0.8
Glucose 149 H
Calcium 9.5
Vital Signs:
Vital Signs
Temp Pulse Resp BP Pulse Ox
97.4 F 87 18 115/73 94
05/07/24 08:41 05/07/24 08:41 05/07/24 08:41 05/07/24 08:41 05/07/24 08:41
I&O
05/06/24 05/07/24 05/08/24
06:59 06:59 06:59
Intake Total 480 / 480
Balance 480 / 480
[2024-05-07] MEDS: LASIX 20 MG IV (13:12)
[2024-05-07] MEDS: XOPENEX 1.25 MG INHALANT SOLUTION INH ×2 (13:23→20:11)
[2024-05-07] MEDS: ATROVENT NEBULES 0.5 MG INH (13:23)
[2024-05-07 16:01] VITALS: BP 144/76
--- NOTE | 2024-05-07 17:07 | PTCARENOTE ---
Received patient this am AAOx3. Pt OOB to chair and ambulating in room independently with a steady gait. Tolerated diet well. Pt given IV Lasix as ordered. Offered no complaints. Made patient comfortable. Cont to assess patient status.
[2024-05-07] MEDS: ATROVENT NEBULES INH (20:10)
[2024-05-07 23:55] VITALS: BP 123/73
[2024-05-08] MEDS: DECADRON 4 MG IV ×2 (05:31→15:50)
[2024-05-08] MEDS: SYNTHROID 88 MCG PO (05:32)
[2024-05-08 06:00] VITALS: BMI 34.5
[2024-05-08] MEDS: XOPENEX 1.25 MG INHALANT SOLUTION INH ×3 (06:39→20:01)
[2024-05-08] MEDS: ATROVENT NEBULES 0.5 MG INH ×3 (06:39→20:01)
[2024-05-08] MEDS: SPIRIVA RESPIMAT 2.5 MCG INH (06:39)
[2024-05-08 07:35] VITALS: BP 117/73
[2024-05-08] MEDS: ELIQUIS 5 MG PO ×2 (08:45→20:39)
[2024-05-08] MEDS: TOPROL XL 25 MG PO ×2 (08:45→20:38)
[2024-05-08] MEDS: FARXIGA 10 MG PO (08:45)
[2024-05-08] MEDS: VIBRAMYCIN 100 MG PO ×2 (08:45→20:53)
[2024-05-08] MEDS: NORVASC 5 MG PO (08:46)
[2024-05-08] MEDS: LASIX 20 MG PO (08:48)
[2024-05-08] MEDS: MUCINEX 600 MG PO ×2 (08:48→20:38)
[2024-05-08 09:10] LABS: % Basophils 0.1 % (0-2); % Eosinophils 0.2 % (0-6); % Immature Granulocytes 0.4 % (0-0.5); % Lymphocytes 3.8 % (20.5-51.1); % Monocytes 4.8 % (1.7-9.3); % Neutrophils 90.7 % (42.2-75.2); Absolute Immature Granulocytes 0.1 10^3/uL (0-0.05); Absolute Lymphocytes 0.6 10^3/uL (1.2-3.4); Absolute Monocytes 0.7 10^3/uL (0.1-0.6); Absolute Neutrophils 12.9 10^3/uL (1.4-6.5); Hematocrit 43.9 % (37.0-47.0); Hemoglobin 14.5 g/dL (12.0-16.0); Mean Corpuscular Hgb 29.2 pg (27.0-31.0); Mean Corpuscular Volume 88.3 fL (81.0-99.0); Mean Platelet Volume 9.5 fL (7.4-10.4); Nucleated Red Blood Cells % 0 %; Platelet Count 497 10^3/uL (130-400); Red Blood Cell Count 4.97 10^6/uL (4.20-5.40); Red Cell Dist. Width 15.3 % (11.5-14.5); White Blood Cell Count 14.3 10^3/uL (4.8-10.8)
[2024-05-08 09:28] LABS: Blood Urea Nitrogen 26 mg/dl (7-17); Carbon Dioxide 24 mmol/L (22-30); Chloride 104 mmol/L (98-107); Estimated Creatinine Clearance 50 ml/min; Glucose 147 mg/dl (70-99); Potassium 4.2 mmol/L (3.5-5.1); Sodium 138 mmol/L (135-145); eGFR > 60.00
[2024-05-08] MEDS: ANESTHETIC LOZENGE 1 LOZENGE PO ×2 (11:20→20:40)
--- NOTE | 2024-05-08 13:52 | W.PN.HOSP.TC ---
Today's Communication/Plan
-
Monitor vital signs see plan
Continue with IV steroids, nebs
doxy
Assessment / Plan
Assessment / Plan
General: Well Developed, Well Nourished, No Apparent Distress, Comfortable and Conversant
HEENT: NormoCephalic, Moist mucous membranes, Atraumatic, PERRLA, [place] Conjunctivae
Respiratory: Clear, Rhonchi and Non Labored Respirations
Cardiac: S1/S2 and Regular Rhythm
GI: Soft, Non Tender, Non Distended and Normal Bowel Sounds
Musculoskeletal: No Edema
Neuro: Awake, Alert, AO x 3 and Nonfocal/grossly intact
Psych: Calm and Intact Judgment/Insight
Acute bronchitis
#COPD exacerbation
CXR: 1. Mild to moderate cardiomegaly with central pulmonary vascular distention which appears chronic and unchanged.
2. Mild elevation of the anterior right hemidiaphragm.
3. Severe calcific atherosclerotic plaque in the thoracic and abdominal aorta.
Influenza and Covid negative
- dexamethasone
- DuoNeb
- Mucinex
#hypertension
- continue amlodipine, metoprolol
#hyperlipidemia
- continue simvastatin
#hypothyroidism
- continue levothyroxine
#CKD 3
BUN 15, Creat 0.8
- monitor BMP
#atrial fibrillation
- continue apixaban and metoprolol
#HFpEF
Does not appear to be in volume overload however proBNP high
Trial of Lasix
ECHO (03/23/2024): Normal left ventricular size and systolic function. Mild concentric left
ventricular hypertrophy. No regional wall motion abnormalities are seen. LV
ejection fraction is 55-60%.
Diastolic function indeterminate due to atrial fibrillation.
Indexed LA volume is severely abnormal (> 48 mL/m2).
Mild mitral regurgitation.
- continue amlodipine, empagliflozin, furosemide, and metoprolol
- daily weights
#morbid obesity due to excessive calories
- affects all aspects of care
- encourage balanced lifestyle of diet and exercise
DVT Prophylaxis:
Eliquis
Code Status:
Full code
I spent a total of 52 minutes with the patient or on the floor. More than 50% of this time involved counseling and coordination of care.
Anticipated Discharge: 24 - 48 hours
Subjective/Interval History
-
Date of Service: May 08, 2024
denies pain
Objective Data
-
Labs:
Laboratory Results
05/08/24 05/08/24
08:39 08:40
WBC 14.3 H
Hgb 14.5
Hct 43.9
Plt Count 497 H
Sodium 138
Potassium 4.2
Chloride 104
Carbon Dioxide 24
BUN 26 H
Creatinine 0.9
Glucose 147 H
Calcium 10.0
Vital Signs:
Vital Signs
Temp Pulse Resp BP Pulse Ox
98.1 F 84 20 117/73 94
05/08/24 07:35 05/08/24 13:25 05/08/24 13:25 05/08/24 08:46 05/08/24 11:40
I&O
05/07/24 05/08/24 05/09/24
06:59 06:59 06:59
Intake Total 480 / 480 1400 / 1400
Output Total 600 / 600
Balance 480 / 480 800 / 800
[2024-05-08 15:30] VITALS: BP 125/73
--- NOTE | 2024-05-08 17:28 | CM ---
Spoke with pt in room.
Pt changed to In patient .IMM given explained signed on chart.
Offered VN she declined.
Maintained on IV steroids.
She said Luz Marina beverly will drive her [place]
[facility] Home no needs
[2024-05-08 23:13] VITALS: BP 124/72
[2024-05-09] MEDS: SYNTHROID 88 MCG PO (05:00)
[2024-05-09] MEDS: DECADRON 4 MG IV ×2 (05:00→16:48)
[2024-05-09 06:00] VITALS: BMI 34.3
[2024-05-09 07:40] VITALS: BP 168/96
[2024-05-09] MEDS: ATROVENT NEBULES 0.5 MG INH ×3 (08:36→19:39)
[2024-05-09] MEDS: XOPENEX 1.25 MG INHALANT SOLUTION INH ×3 (08:36→19:38)
[2024-05-09 08:37] LABS: % Basophils 0.1 % (0-2); % Eosinophils 0.3 % (0-6); % Immature Granulocytes 0.8 % (0-0.5); % Lymphocytes 6.7 % (20.5-51.1); % Monocytes 5.8 % (1.7-9.3); % Neutrophils 86.3 % (42.2-75.2); Absolute Immature Granulocytes 0.1 10^3/uL (0-0.05); Absolute Lymphocytes 0.8 10^3/uL (1.2-3.4); Absolute Monocytes 0.7 10^3/uL (0.1-0.6); Absolute Neutrophils 10.2 10^3/uL (1.4-6.5); Hematocrit 43.3 % (37.0-47.0); Hemoglobin 14.2 g/dL (12.0-16.0); Mean Corp Hgb Conc. 32.8 g/dL (33.0-37.0); Mean Corpuscular Hgb 29.2 pg (27.0-31.0); Mean Corpuscular Volume 89.1 fL (81.0-99.0); Mean Platelet Volume 9.4 fL (7.4-10.4); Nucleated Red Blood Cells % 0 %; Platelet Count 506 10^3/uL (130-400); Red Blood Cell Count 4.86 10^6/uL (4.20-5.40); Red Cell Dist. Width 15.4 % (11.5-14.5); White Blood Cell Count 11.8 10^3/uL (4.8-10.8)
[2024-05-09] MEDS: TOPROL XL 25 MG PO ×2 (08:59→21:20)
[2024-05-09] MEDS: NORVASC 5 MG PO (08:59)
[2024-05-09] MEDS: MUCINEX 600 MG PO ×2 (08:59→21:21)
[2024-05-09] MEDS: VIBRAMYCIN 100 MG PO ×2 (08:59→21:22)
[2024-05-09] MEDS: FARXIGA 10 MG PO (08:59)
[2024-05-09] MEDS: ELIQUIS 5 MG PO ×2 (09:00→21:21)
[2024-05-09] MEDS: ANESTHETIC LOZENGE 1 LOZENGE PO ×2 (09:00→13:09)
[2024-05-09 09:18] LABS: Blood Urea Nitrogen 26 mg/dl (7-17); Calcium 9.6 mg/dl (8.4-10.2); Carbon Dioxide 22 mmol/L (22-30); Chloride 103 mmol/L (98-107); Estimated Creatinine Clearance 64 ml/min; Glucose 131 mg/dl (70-99); Potassium 4.8 mmol/L (3.5-5.1); Sodium 138 mmol/L (135-145); eGFR > 60.00
--- NOTE | 2024-05-09 12:53 | W.PN.HOSP.TC ---
Today's Communication/Plan
-
Monitor vital signs see plan
Continue with steroids, Doxy
Add Tessalon Perles, continue Mucinex
Assessment / Plan
Assessment / Plan
General: Well Developed, Well Nourished, No Apparent Distress, Comfortable and Conversant
HEENT: NormoCephalic, Moist mucous membranes, Atraumatic, PERRLA, [place] Conjunctivae
Respiratory: Clear, Rhonchi and Non Labored Respirations
Cardiac: S1/S2 and Regular Rhythm
GI: Soft, Non Tender, Non Distended and Normal Bowel Sounds
Musculoskeletal: No Edema
Neuro: Awake, Alert, AO x 3 and Nonfocal/grossly intact
Psych: Calm and Intact Judgment/Insight
Acute bronchitis
#COPD exacerbation
CXR: 1. Mild to moderate cardiomegaly with central pulmonary vascular distention which appears chronic and unchanged.
2. Mild elevation of the anterior right hemidiaphragm.
3. Severe calcific atherosclerotic plaque in the thoracic and abdominal aorta.
Influenza and Covid negative
- dexamethasone
- DuoNeb
- Mucinex
#hypertension
- continue amlodipine, metoprolol
#hyperlipidemia
- continue simvastatin
#hypothyroidism
- continue levothyroxine
#CKD 3
BUN 15, Creat 0.8
- monitor BMP
#atrial fibrillation
- continue apixaban and metoprolol
#HFpEF
Does not appear to be in volume overload however proBNP high
Trial of Lasix
ECHO (03/23/2024): Normal left ventricular size and systolic function. Mild concentric left
ventricular hypertrophy. No regional wall motion abnormalities are seen. LV
ejection fraction is 55-60%.
Diastolic function indeterminate due to atrial fibrillation.
Indexed LA volume is severely abnormal (> 48 mL/m2).
Mild mitral regurgitation.
- continue amlodipine, empagliflozin, furosemide, and metoprolol
- daily weights
#morbid obesity due to excessive calories
- affects all aspects of care
- encourage balanced lifestyle of diet and exercise
DVT Prophylaxis:
Eliquis
Code Status:
Full code
Anticipated Discharge: Within 24 hours
Subjective/Interval History
-
Date of Service: May 09, 2024
denies pain
Objective Data
-
Labs:
Laboratory Results
05/09/24
07:36
WBC 11.8 H
Hgb 14.2
Hct 43.3
Plt Count 506 H
Sodium 138
Potassium 4.8
Chloride 103
Carbon Dioxide 22
BUN 26 H
Creatinine 0.7
Glucose 131 H
Calcium 9.6
Vital Signs:
Vital Signs
Temp Pulse Resp BP Pulse Ox
97.6 F 61 16 168/96 96
05/09/24 07:40 05/09/24 08:37 05/09/24 08:37 05/09/24 07:40 05/09/24 09:05
I&O
05/08/24 05/09/24 05/10/24
06:59 06:59 06:59
Intake Total 1400 / 1400 720 / 720
Output Total 600 / 600 1550 / 1550 250 / 250
Balance 800 / 800 -830 / -830 -250 / -250
[2024-05-09] MEDS: TESSALON PERLES 200 MG PO (13:10)
[2024-05-09 15:32] VITALS: BP 143/87
[2024-05-09 23:29] VITALS: BP 151/84
[2024-05-10] MEDS: SYNTHROID 88 MCG PO (05:00)
[2024-05-10] MEDS: DECADRON 4 MG IV (05:00)
[2024-05-10] MEDS: ANESTHETIC LOZENGE 1 LOZENGE PO (05:35)
[2024-05-10 06:00] VITALS: BMI 34.3
[2024-05-10 07:35] VITALS: BP 120/78
[2024-05-10 08:27] LABS: % Basophils 0.1 % (0-2); % Immature Granulocytes 1.1 % (0-0.5); % Monocytes 5.3 % (1.7-9.3); % Neutrophils 86.5 % (42.2-75.2); Absolute Immature Granulocytes 0.1 10^3/uL (0-0.05); Absolute Lymphocytes 0.8 10^3/uL (1.2-3.4); Absolute Monocytes 0.6 10^3/uL (0.1-0.6); Absolute Neutrophils 9.3 10^3/uL (1.4-6.5); Hematocrit 47.5 % (37.0-47.0); Mean Corp Hgb Conc. 31.6 g/dL (33.0-37.0); Mean Corpuscular Hgb 28.3 pg (27.0-31.0); Mean Corpuscular Volume 89.6 fL (81.0-99.0); Mean Platelet Volume 8.9 fL (7.4-10.4); Nucleated Red Blood Cells % 0 %; Platelet Count 638 10^3/uL (130-400); Red Cell Dist. Width 15.5 % (11.5-14.5); White Blood Cell Count 10.7 10^3/uL (4.8-10.8)
[2024-05-10] MEDS: VIBRAMYCIN 100 MG PO (08:37)
[2024-05-10] MEDS: FARXIGA 10 MG PO (08:37)
[2024-05-10] MEDS: NORVASC 5 MG PO (08:37)
[2024-05-10] MEDS: ELIQUIS 5 MG PO (08:38)
[2024-05-10] MEDS: TOPROL XL 25 MG PO (08:38)
[2024-05-10] MEDS: MUCINEX 600 MG PO (08:38)
[2024-05-10] MEDS: XOPENEX 1.25 MG INHALANT SOLUTION INH (08:44)
[2024-05-10] MEDS: ATROVENT NEBULES 0.5 MG INH (08:44)
[2024-05-10 08:50] LABS: Blood Urea Nitrogen 25 mg/dl (7-17); Calcium 9.6 mg/dl (8.4-10.2); Carbon Dioxide 25 mmol/L (22-30); Chloride 101 mmol/L (98-107); Estimated Creatinine Clearance 55 ml/min; Glucose 134 mg/dl (70-99); Sodium 139 mmol/L (135-145); eGFR > 60.00
--- NOTE | 2024-05-10 11:24 | W.PN.HOSP.TC ---
Addendum entered and electronically signed by Brenton Nelson MD 05/10/24 11:35:
Lasix made daily. Patient to follow-up with her [employer] outpatient. Repeat BMP with primary care provider next week outpatient
Original Note:
Today's Communication/Plan
-
Monitor vital signs see plan
Switch steroids to oral
DuoNebs, Pulmicort
Discharge today
Time of discharge 39 minutes
Assessment / Plan
Assessment / Plan
General: Well Developed, Well Nourished, No Apparent Distress, Comfortable and Conversant
HEENT: NormoCephalic, Moist mucous membranes, Atraumatic, PERRLA, [place] Conjunctivae
Respiratory: Clear, Rhonchi and Non Labored Respirations
Cardiac: S1/S2 and Regular Rhythm
GI: Soft, Non Tender, Non Distended and Normal Bowel Sounds
Musculoskeletal: No Edema
Neuro: Awake, Alert, AO x 3 and Nonfocal/grossly intact
Psych: Calm and Intact Judgment/Insight
Acute bronchitis
#COPD exacerbation
CXR: 1. Mild to moderate cardiomegaly with central pulmonary vascular distention which appears chronic and unchanged.
2. Mild elevation of the anterior right hemidiaphragm.
3. Severe calcific atherosclerotic plaque in the thoracic and abdominal aorta.
Influenza and Covid negative
- Transition IV steroids to p.o. prednisone with taper
- DuoNeb; patient does have nebulizer machine at home. Will prescribe Pulmicort and DuoNebs
- Mucinex, Tessalon Perles
#hypertension
- continue amlodipine, metoprolol
#hyperlipidemia
- continue simvastatin
#hypothyroidism
- continue levothyroxine
#CKD 3
BUN 15, Creat 0.8
- monitor BMP
#atrial fibrillation
- continue apixaban and metoprolol
#HFpEF
Does not appear to be in volume overload however proBNP high
Continue with p.o. Lasix
ECHO (03/23/2024): Normal left ventricular size and systolic function. Mild concentric left
ventricular hypertrophy. No regional wall motion abnormalities are seen. LV
ejection fraction is 55-60%.
Diastolic function indeterminate due to atrial fibrillation.
Indexed LA volume is severely abnormal (> 48 mL/m2).
Mild mitral regurgitation.
- continue amlodipine, empagliflozin, furosemide, and metoprolol
- daily weights
#morbid obesity due to excessive calories
- affects all aspects of care
- encourage balanced lifestyle of diet and exercise
DVT Prophylaxis:
Eliquis
Code Status:
Full code
Anticipated Discharge: Today
Subjective/Interval History
-
Date of Service: May 10, 2024
Denies pain
Objective Data
-
Labs:
Laboratory Results
05/10/24
07:12
WBC 10.7
Hgb 15.0
Hct 47.5 H
Plt Count 638 H D
Sodium 139
Potassium 5.0
Chloride 101
Carbon Dioxide 25
BUN 25 H
Creatinine 0.8
Glucose 134 H
Calcium 9.6
Vital Signs:
Vital Signs
Temp Pulse Resp BP Pulse Ox
97.7 F 65 16 120/78 96
05/10/24 07:35 05/10/24 08:47 05/10/24 08:47 05/10/24 08:37 05/10/24 10:57
I&O
05/09/24 05/10/24 05/11/24
06:59 06:59 06:59
Intake Total 720 / 720 660 / 660
Output Total 1550 / 1550 1999 / 1999
Balance -830 / -830 -1340 / -1340
--- NOTE | 2024-05-10 11:35 | W.DCSUMMARY ---
Discharge Summary
Discharge Data
Date of Admission: 05/08/24
Date of Discharge: 05/10/24
-
Pending Results: No
Hospital Course
84-year-old female with past medical history of COPD, hypertension, hyperlipidemia, hypothyroidism, CKD stage III, atrial fibrillation, CHF, morbid obesity came to the hospital with shortness of breath consistent with acute bronchitis and COPD
exacerbation. Patient was initially treated with IV steroids and nebulizers which improved her symptoms. Her steroids was later transitioned to p.o. prednisone with taper prior to discharge. Her Lasix was also transitioned to daily and she was
instructed to get repeat BMP outpatient follow-up with cardiology. Once her symptoms continue to improve, she was then discharged home with instructions to follow-up with all her physicians outpatient.
Discharge Plan
-
Patient Disposition: Home (Routine Discharge)
Discharge Diagnosis/Procedures: Acute bronchitis
COPD exacerbation
Chronic congestive heart failure
Diet: As tolerated
Activity: As tolerated
Driving Restrictions: As prior to admission
Bathing Restrictions: None
Blood Work: BMP next week with primary care provider
Activity Restrictions/Additional Instructions:
Follow-up with your senior php software developer outpatient
Take Lasix 20 mg daily for now and follow-up with your senior php software developer next week outpatient. Check BMP next week with primary care provider
Referrals:
Jason Borges MD, Resident [Family Provider] - in less than 1 week
Diomedes Adams MD [Active] -
Prescriptions:
New
prednisone 10 mg Tablet
See Rx Instructions .ROUTE .COMPLEX Qty: 30 0RF
Rx Instructions:
Take By Mouth:
40 mg daily x3 days, 30 mg daily x3 days,
20 mg daily x3 days, 10 mg daily x3 days.
doxycycline hyclate 100 mg Capsule
100 mg PO Q12 Qty: 4 0RF
benzonatate 100 mg Capsule
200 mg PO TID 5 Days Qty: 30 0RF
guaifenesin 600 mg Tablet Extended Release 12hr
600 mg PO Q12 Qty: 0 0RF
budesonide 0.5 mg/2 mL suspension for nebulization
0.5 mg inhalation BID Qty: 60 0RF
albuterol sulfate 1.25 mg/3 mL solution for nebulization
1.25 mg inhalation QID PRN (Reason: shortness of breath or wheezing) Qty: 90 0RF
Continued
levothyroxine 88 MCG tablet
88 mcg PO DAILY
acetaminophen 325 mg Capsule
650 mg PO Q6HPRN PRN (Reason: mild pain)
Eliquis 5 mg Tablet
5 mg PO BID 30 Days Qty: 60 0RF
Jardiance 10 mg tablet
10 mg PO DAILY Qty: 30 0RF
metoprolol succinate 25 mg Tablet Extended Release 24 Hr
25 mg PO BID Qty: 60 11RF
amlodipine 5 mg Tablet
5 mg PO DAILY
Spiriva Respimat 2.5 mcg/actuation mist
2 puff inhalation R BID
furosemide 20 mg tablet
20 mg PO DAILY Qty: 0 0RF
Rx Instructions:
strength unknown
Discharge Orders:
Discharge Patient (As Directed); Ordered 05/10/24
Ordered By: Brenton Nelson
Discharge Date and Time
Discharge Date/Time: 05/10/24 13:33
Print Language: URDU
== END 2024-05-10 13:33 | disposition home or self-care (01) | DRG 191 ==
LOC: 4 EAST ACU 13:54
PROVIDERS: Emergency Medicine; Nurse Practitioner Family; ADMITTING PHYSICIAN Hospitalist; ATTENDING PHYSICIAN Internal Medicine; EMERGENCY PHYSICIAN Emergency Medicine; FAMILY PHYSICIAN Student in an Organized Health Care Education/Training Program
DX: J44.1 Chronic obstructive pulmonary disease with (acute) exacerbation (principal); I13.0 Hypertensive heart and chronic kidney disease with heart failure and stage 1 through stage 4 chronic kidney disease, or unspecified chronic kidney disease; I50.32 Chronic diastolic (congestive) heart failure; J44.0 Chronic obstructive pulmonary disease with (acute) lower respiratory infection; Z11.52 Encounter for screening for COVID-19; Z87.891 Personal history of nicotine dependence; N18.30 Chronic kidney disease, stage 3 unspecified; E78.00 Pure hypercholesterolemia, unspecified; E03.9 Hypothyroidism, unspecified; I48.91 Unspecified atrial fibrillation; E66.01 Morbid (severe) obesity due to excess calories; J20.8 Acute bronchitis due to other specified organisms; Z68.34 Body mass index [BMI] 34.0-34.9, adult
CPT/HCPCS: 71046; 80048; 80053; 83880; 85025; 87502; 87811; 93005; 94640; 96374; 99285

== ENCOUNTER 2024-05-24 09:49 | Emergency (ER) | payer OTHER, SELFPAY ==
[2024-05-24 10:00] VITALS: BP 142/93
--- NOTE | 2024-05-24 10:19 | EDRN ---
Dr. Soto in room w/ pt at this time.
--- NOTE | 2024-05-24 10:26 | ED.GENMED ---
History of Present Illness
General
Chief Complaint: Chest Pain
Time Seen by Provider: 05/24/24 10:18
History of Present Illness
History of Present Illness:
Patient is a 84-year-old woman with history of hypertension, hyperlipidemia, breast cancer, A-fib on Eliquis presenting to the emergency department chest pain. Patient states that 2 days ago she had left arm pain. Yesterday night the pain started
in her left chest. Has been constant in her left chest. Does not radiate anywhere. The pain is pleuritic. She does state that the pain is not exertional. She has had pain like this before. She states that she comes here they gave her Dilaudid
and usually admit her for suspected musculoskeletal pain. She denies any shortness of breath leg swelling. She has not missed any of her medications. No recent travel or hemoptysis. No leg swelling. No recent trauma. She has never had a stent.
No family history of cardiac disease. She does follow with Dr. Kruse of cardiology
Past History
Past History
ED Past Medical History: Arrthythmia (Atrial fib), Cancer (Breast CA), HTN, Hypercholesterolemia, Hypothyroidism and Other (Hiatal hernia, Colitis, Macular degeneration, )
ED Past Surgical History: Gynecological (Fibroid removed, ) and Other (Lumpectomy left breast, hiatal hernia repair)
Social History
Tobacco: Former smoker
Alcohol: None
Drug: None
Personal:
Living: with family
Family History
Family History: Unable to obtain
Phy Exam
Physical Exam
Physical Exam:
GENERAL: in no acute distress
HEENT: normocephalic, extraocular movements intact, moist oral mucosa
NECK: normal inspection
RESPIRATORY: no respiratory distress, clear to auscultation bilaterally
CARDIOVASCULAR: regular rate and rhythm, reproducible left chest wall tenderness
ABDOMEN/: soft, non-distended, non-tender to palpation, no rebound or guarding
EXTREMITIES: non-tender, no edema/swelling
NEUROLOGIC: awake and alert, moves all extremities
SKIN: warm
Scores
Heart Score for Chest Pain Patients
STEMI patient?: Not applicable
Course
Orders/Labs/Results
Orders:
Orders
05/24/24 09:50
Electrocardiogram (*1) Urgent
Reason for Study: Chest Pain
EKG- Treatment ONCE
05/24/24 10:23
Acetaminophen [Tylenol] 650 mg PO NOW STA
05/24/24 10:24
CR Chest - 2 Views Urgent
Comment:
Reason For Exam: chest pain
05/24/24 10:41
Basic Metabolic Panel Urgent
Complete Blood Count/With Diff Urgent
D-Dimer Urgent
NT-proBNP Urgent
Troponin I Urgent
Abnormal Lab Results
05/24/24
10:41
MCHC 32.0 L g/dL
(33.0-37.0)
RDW 15.3 H %
(11.5-14.5)
Abs Immat Gran (auto) 0.1 H 10^3/uL
(0-0.05)
Absolute Neuts (auto) 7.3 H 10^3/uL
(1.4-6.5)
Absolute Monos (auto) 1.0 H 10^3/uL
(0.1-0.6)
Immature Gran % 0.7 H %
(0-0.5)
Lymphocytes % 17.7 L %
(20.5-51.1)
Monocytes % 9.8 H %
(1.7-9.3)
BUN 19 H mg/dl
(7-17)
Glucose 130 H mg/dl
(70-99)
05/24/24 10:41
05/24/24 10:41
Vital Signs
Initial and Last Documented VS:
Initial Vital Signs
Temp Pulse Resp BP Pulse Ox
98.3 F 83 18 142/93 97
05/24/24 10:00 05/24/24 10:00 05/24/24 10:00 05/24/24 10:00 05/24/24 10:00
Last Documented Vital Signs
Temp Pulse Resp BP Pulse Ox
98.3 F 81 17 105/59 94
05/24/24 10:00 05/24/24 12:15 05/24/24 12:15 05/24/24 11:00 05/24/24 12:15
MDM/Problems Addressed
Differential Diagnosis Includes:
Patient is 84-year-old woman with history of A-fib on Eliquis, hypertension, hyperlipidemia, breast cancer presenting to the emergency department with chest pain that started yesterday. Vitals unremarkable exam does show reproducible chest wall
tenderness. Likely musculoskeletal pain however other differentials consist of ACS versus PE versus CHF exacerbation. Will check blood work including troponin and dimer as well as chest x-ray. EKG completed per my interpretation does show
fibrillation. No significant ST changes. I did discuss with patient that we will treat the pain with nonopioid such as Tylenol.
*Critical Care Note
Total Time (30-74mins, 75-104mins- exclusive of procedures): Not Applicable
Update Note
Update Note:
Blood work unremarkable. Chest x-ray with no acute abnormalities. Will discharge with PCP and cardiology routine follow-up
ED Attending Note
-
Portions of this chart may have been created with voice recognition software.� Occasional wrong word or��sound alike� substitutions may have occurred due to the inherent limitations of voice recognition software.
Discharge Plan
Departure
Patient Disposition: Home (Routine Discharge)
Date of Disposition: 05/24/24
Time of Disposition: 12:25
Patient with high blood pressure during this ER visit?: No
Discharge Problem:
Chest pain
Prescriptions:
No Action
levothyroxine 88 MCG tablet
88 mcg PO DAILY
acetaminophen 325 mg Capsule
650 mg PO Q6HPRN PRN (Reason: mild pain)
Eliquis 5 mg Tablet
5 mg PO BID 30 Days Qty: 60 0RF
Jardiance 10 mg tablet
10 mg PO DAILY Qty: 30 0RF
metoprolol succinate 25 mg Tablet Extended Release 24 Hr
25 mg PO BID Qty: 60 11RF
amlodipine 5 mg Tablet
5 mg PO DAILY
Spiriva Respimat 2.5 mcg/actuation mist
2 puff inhalation R BID
prednisone 10 mg Tablet
See Rx Instructions .ROUTE .COMPLEX Qty: 30 0RF
Rx Instructions:
Take By Mouth:
40 mg daily x3 days, 30 mg daily x3 days,
20 mg daily x3 days, 10 mg daily x3 days.
doxycycline hyclate 100 mg Capsule
100 mg PO Q12 Qty: 4 0RF
benzonatate 100 mg Capsule
200 mg PO TID 5 Days Qty: 30 0RF
guaifenesin 600 mg Tablet Extended Release 12hr
600 mg PO Q12 Qty: 0 0RF
budesonide 0.5 mg/2 mL suspension for nebulization
0.5 mg inhalation BID Qty: 60 0RF
furosemide 20 mg tablet
20 mg PO DAILY Qty: 0 0RF
Rx Instructions:
strength unknown
albuterol sulfate 1.25 mg/3 mL solution for nebulization
1.25 mg inhalation QID PRN (Reason: shortness of breath or wheezing) Qty: 90 0RF
Referrals:
Jason Borges MD, Resident [Family Provider] -
Zafar De La Torre DO [Active] -
Activity Restrictions/Additional Instructions:
You were evaluated in the Emergency Department today for chest pain. Your evaluation has shown no signs of medical conditions requiring emergent intervention at this time, however we recommend that you follow up with your primary care physician or
your unit leader as soon as possible for further testing as an outpatient.
Please schedule an appointment for follow up with your primary care physician as soon as possible.
Return to the Emergency Department if you experience worsening or uncontrolled chest pain, shortness of breath, light headedness, feeling faint, nausea, vomiting, or any other concerning symptoms.
Thank you for choosing us for your care.
Interventions
Interventions:
*Risk Screen - Suicide Last Done: 05/24/24 10:00
*General Assessment Last Done: 05/24/24 10:40
*Neglect/Abuse Screening Last Done: 05/24/24 10:00
ED- Fall Risk Assessment Last Done: 05/24/24 10:40
*ED COVID-19 Vaccine History Last Done: 05/24/24 10:40
ED- Cardiac Assessment Last Done: 05/24/24 10:40
Discharge Date and Time
Print Language: INDIAN
[2024-05-24 10:40] VITALS: BP 117/73
--- NOTE | 2024-05-24 10:40 | EDRN ---
Pt states that she has had L chest pain throughout the night intermittent and flucuating between 09/12-02/12, described as heavy (describes like a weight on her chest) and sharp. Pain increases w/ movement and on inspiration. Pt is breathing heavy at
this time. Two days ago pt states she had L arm pain going down her arm and in axilla area as well, none now. Pt was admitted at the beginning of May (?05/06-05/10) for exac COPD and bronchitis. Pt continues w/nebs at home. Breathing has remained
heavier since that admit.
[2024-05-24 10:54] LABS: % Basophils 0.3 % (0-2); % Eosinophils 0.2 % (0-6); % Immature Granulocytes 0.7 % (0-0.5); % Lymphocytes 17.7 % (20.5-51.1); % Monocytes 9.8 % (1.7-9.3); % Neutrophils 71.3 % (42.2-75.2); Absolute Immature Granulocytes 0.1 10^3/uL (0-0.05); Absolute Lymphocytes 1.8 10^3/uL (1.2-3.4); Absolute Neutrophils 7.3 10^3/uL (1.4-6.5); Hematocrit 44.7 % (37.0-47.0); Hemoglobin 14.3 g/dL (12.0-16.0); Mean Corpuscular Hgb 28.9 pg (27.0-31.0); Mean Corpuscular Volume 90.3 fL (81.0-99.0); Mean Platelet Volume 8.6 fL (7.4-10.4); Nucleated Red Blood Cells % 0 %; Platelet Count 356 10^3/uL (130-400); Red Blood Cell Count 4.95 10^6/uL (4.20-5.40); Red Cell Dist. Width 15.3 % (11.5-14.5); White Blood Cell Count 10.3 10^3/uL (4.8-10.8)
[2024-05-24 11:00] VITALS: BP 105/59
[2024-05-24 11:01] LABS: D-Dimer 0.34 ug/mlFEU (0.00-0.50)
[2024-05-24] MEDS: TYLENOL 650 MG PO (11:01)
[2024-05-24 11:02] LABS: Blood Urea Nitrogen 19 mg/dl (7-17); Calcium 8.9 mg/dl (8.4-10.2); Carbon Dioxide 27 mmol/L (22-30); Chloride 103 mmol/L (98-107); Glucose 130 mg/dl (70-99); eGFR > 60.00
[2024-05-24 11:05] VITALS: BMI 34.2
[2024-05-24 11:09] LABS: Sodium 137 mmol/L (135-145)
[2024-05-24 11:12] LABS: NT-proBNP 1730 pg/ml; Troponin I < 0.012 ng/ml
--- NOTE | 2024-05-24 11:54 | EDRN ---
Pt states pain is more localized at this time in mid L chest and not as diffuse in L chest. Pt unable to rate pain as to a number and does not state pain is any less at this time at rest or w/ movement, only says pain has not gone away.
== END 2024-05-24 12:45 | disposition home or self-care (01) ==
LOC: EMR 09:49
PROVIDERS: EMERGENCY PHYSICIAN Student in an Organized Health Care Education/Training Program; FAMILY PHYSICIAN Student in an Organized Health Care Education/Training Program
DX: R07.89 Other chest pain (principal); I10 Essential (primary) hypertension; E78.00 Pure hypercholesterolemia, unspecified; I48.91 Unspecified atrial fibrillation; Z87.891 Personal history of nicotine dependence; Z79.01 Long term (current) use of anticoagulants
CPT/HCPCS: 99285; 71046; 80048; 83880; 84484; 85025; 85379; 93005

== ENCOUNTER 2025-02-02 00:03 | Emergency (ER) | payer OTHER, SELFPAY ==
[2025-02-02] VITALS (9 sets, daily range): BP systolic 94–143; BP diastolic 57–87; BMI 35.1
--- NOTE | 2025-02-02 00:20 | ED.GENMED ---
History of Present Illness
General
Chief Complaint: Chest Pain
Source: patient and family (Daughter)
Time Seen by Provider: 02/02/25 00:13
History of Present Illness
History of Present Illness:
84-year-old female presents emergency room complaint of right-sided chest pain. Pain is severe. Is worse with movement and deep inspiration. It started couple hours ago. Patient has had similar episodes of pain not in the same exact spot but
similar presentation in nature. No fever or chills. Patient has had several visits to the hospital for these episodes. No clear etiology has been identified.
Past History
Past History
ED Past Medical History: Arrthythmia (Atrial fib), Cancer (Breast CA), HTN, Hypercholesterolemia, Hypothyroidism and Other (Hiatal hernia, Colitis, Macular degeneration, )
ED Past Surgical History: Gynecological (Fibroid removed, ) and Other (Lumpectomy left breast, hiatal hernia repair)
Social History
Tobacco: Former smoker
Alcohol: None
Drug: None
Personal:
Living: with family
Family History
Family History: Unable to obtain
Phy Exam
Physical Exam
Physical Exam:
General: Awake, Alert, Oriented X3. Patient appears uncomfortable due to chest pain
Vitals: unremarkable
Head: Atraumatic
Eyes: Pupils equal, EOMI
Throat: Airway intact, no exudates
Neck: Trachea midline
Lungs: Clear and equal b/l
Heart: Regular rate, no murmurs
Abd: Soft, Nontender, No pulsatile mass
Neuro: Nonfocal
Skin: Warm, dry, no rash
Extremities: pulses equal b/l, no edema
Scores
Heart Score for Chest Pain Patients
STEMI patient?: No
History: Slightly or Non-Suspicious
ECG: Nonspecific Repolarization
Age: >/= 65 years
Risk Factors: 1 or 2 Risk Factors
Troponin: </= Normal Limit
Heart Score for Chest Pain Patients: 4
Heart Score Risk: 20.3% MACE over next 6 weeks
Course
Orders/Labs/Results
Orders:
Orders
02/02/25 00:07
Electrocardiogram (*1) Urgent
Reason for Study: Chest Pain
Cardiac Monitoring- Treatment ONCE
EKG- Treatment ONCE
IV Insert/Care/Rem.- Treatment PRN
O2 Therapy [RESP] Urgent
Titrate/Wean O2 to maintain O2 sat greater than (%): 90
Special Instructions: Maintain sats >/=90%
Pulse Ox/spot Check [RESP] Urgent
Quantity: 1
Special Instructions: ON ROOM AIR
02/02/25 00:19
HYDROmorphone [Dilaudid] 0.5 mg IV NOW STA
02/02/25 00:20
CR Chest - 2 Views Urgent
Comment:
Reason For Exam: right sided chest pain
02/02/25 00:29
Complete Blood Count/With Diff Urgent
Comprehensive Metabolic Panel Urgent
D-Dimer Urgent
Troponin I Urgent
02/02/25 01:27
Acetaminophen [Tylenol] 1,000 mg PO NOW STA
02/02/25 01:51
Lidocaine [Lidocaine 4% Patch] 1 patch TOPICAL NOW STA
Apply Lidocaine patch(s) to:: right chest
02/02/25 02:15
HYDROmorphone [Dilaudid] 0.5 mg IV NOW STA
02/02/25 03:50
Troponin I Urgent
Abnormal Lab Results
02/02/25
00:29
MCHC 32.3 L g/dL
(33.0-37.0)
Plt Count 446 H 10^3/uL
(130-400)
Absolute Neuts (auto) 6.7 H 10^3/uL
(1.4-6.5)
Absolute Monos (auto) 0.8 H 10^3/uL
(0.1-0.6)
Lymphocytes % 20.3 L %
(20.5-51.1)
BUN 27 H mg/dl
(7-17)
Creatinine 1.2 H mg/dL
(0.6-1.0)
Glucose 139 H mg/dl
(70-99)
02/02/25 00:29
02/02/25 00:29
Vital Signs
Initial and Last Documented VS:
Initial Vital Signs
Temp Pulse Resp BP Pulse Ox
97.2 F 90 27 143/72 94
02/02/25 00:22 02/02/25 00:22 02/02/25 00:22 02/02/25 00:22 02/02/25 00:22
Last Documented Vital Signs
Temp Pulse Resp BP Pulse Ox
97.2 F 82 18 102/59 98
02/02/25 00:22 02/02/25 05:06 02/02/25 05:06 02/02/25 05:06 02/02/25 05:06
MDM/Problems Addressed
Differential Diagnosis Includes:
Pneumothorax, ACS, chest wall pain
MDM/Problems Addressed:
Patient presents with left-sided chest wall pain. She has had similar episodes resulting in ER visits. She has had multiple imaging studies that have been negative. She has been admitted for some of these episodes. Discharge diagnosis is been
left chest wall pain. Perhaps the patient developed a complex regional pain syndrome in the area of her previous breast surgery. Here her labs are unremarkable including a D-dimer. Troponins negative x 2. EKG shows no acute ischemic changes.
Patient's had chest CT in the past and does not have an aneurysm. Presentation does not seem consistent with a dissection. She was given a couple doses of Dilaudid with ultimate improvement in her pain. Patient stable for discharge home. Will
send a small prescription for oxycodone. Contact information provided for pain management.
*Radiology
Radiology exam reviewed: preliminary read by ED provider (No acute disease)
*Pulse Oximetry
SaO2: 98
Patient hypoxic: no
*EKG
Interpreted by ED Provider?: Yes
Interpretation: abnormal
Heart Rate: 92
Rate: normal
Rhythm: a-fib
[place]: normal axis
Interval: normal interval
QRS Pattern: normal QRS
Ischemia: non-specific ST changes
*[employer] Interpretation
Rate: normal
Interpretation: abnormal
Rhythm: a-fib
*Critical Care Note
Total Time (30-74mins, 75-104mins- exclusive of procedures): Not Applicable
ED Attending Note
-
Portions of this chart may have been created with voice recognition software.� Occasional wrong word or��sound alike� substitutions may have occurred due to the inherent limitations of voice recognition software.
Discharge Plan
Departure
Patient Disposition: Home (Routine Discharge)
Date of Disposition: 02/02/25
Time of Disposition: 04:55
Patient with high blood pressure during this ER visit?: No
Condition: Good
Discharge Problem:
Anterior chest wall pain
Instructions: Chest Pain That Is Not Caused by the Heart (DC)
Prescriptions:
New
oxycodone 5 mg tablet
5 mg PO Q6H PRN (Reason: Pain) Qty: 12 0RF
No Action
levothyroxine 88 MCG tablet
88 mcg PO DAILY
acetaminophen 325 mg Capsule
650 mg PO Q6HPRN PRN (Reason: mild pain)
Eliquis 5 mg Tablet
5 mg PO BID 30 Days Qty: 60 0RF
Jardiance 10 mg tablet
10 mg PO DAILY Qty: 30 0RF
metoprolol succinate 25 mg Tablet Extended Release 24 Hr
25 mg PO BID Qty: 60 11RF
amlodipine 5 mg Tablet
5 mg PO DAILY
Spiriva Respimat 2.5 mcg/actuation mist
2 puff inhalation R BID
prednisone 10 mg Tablet
See Rx Instructions .ROUTE .COMPLEX Qty: 30 0RF
Rx Instructions:
Take By Mouth:
40 mg daily x3 days, 30 mg daily x3 days,
20 mg daily x3 days, 10 mg daily x3 days.
doxycycline hyclate 100 mg Capsule
100 mg PO Q12 Qty: 4 0RF
benzonatate 100 mg Capsule
200 mg PO TID 5 Days Qty: 30 0RF
guaifenesin 600 mg Tablet Extended Release 12hr
600 mg PO Q12 Qty: 0 0RF
budesonide 0.5 mg/2 mL suspension for nebulization
0.5 mg inhalation BID Qty: 60 0RF
furosemide 20 mg tablet
20 mg PO DAILY Qty: 0 0RF
Rx Instructions:
strength unknown
albuterol sulfate 1.25 mg/3 mL solution for nebulization
1.25 mg inhalation QID PRN (Reason: shortness of breath or wheezing) Qty: 90 0RF
Referrals:
Jason Borges MD, Resident [Family Provider, General]
Eliot Nunes MD [Active, Anesthesiology]
Activity Restrictions/Additional Instructions:
You are seen for chest pain today. I believe the pain is coming from your chest wall. Testing here showed no evidence for a serious cause for your pain. It is possible that you have a particular type of pain syndrome related to your previous
breast surgery. I have given you contact information for one of our pain management doctors who may be able to help you control this pain better.
Interventions
Interventions:
*Risk Screen - Suicide Last Done: 02/02/25 00:08
*General Assessment Last Done: 02/02/25 00:18
*Neglect/Abuse Screening Last Done: 02/02/25 00:18
*ED- Fall Risk Assessment Last Done: 02/02/25 00:17
*ED COVID-19 Vaccine History Last Done: 02/02/25 00:16
*ED Influenza Vaccine History Last Done: 02/02/25 00:16
*Nursing Disposition Last Done: 02/02/25 05:06
ED- Cardiac Assessment Last Done: 02/02/25 00:19
Discharge Date and Time
Discharge Date/Time: 02/02/25 05:11
Print Language: [id number]
[2025-02-02] MEDS: DILAUDID 0.5 MG IV ×2 (00:25→02:40)
[2025-02-02 00:47] LABS: Hematocrit 46.8 % (37.0-47.0); Hemoglobin 15.1 g/dL (12.0-16.0); Mean Corp Hgb Conc. 32.3 g/dL (33.0-37.0); Mean Corpuscular Volume 89.3 fL (81.0-99.0); Nucleated Red Blood Cells % 0 %; Platelet Count 446 10^3/uL (130-400); Red Cell Dist. Width 14.3 % (11.5-14.5)
[2025-02-02 00:56] LABS: D-Dimer 0.32 ug/mlFEU (0.00-0.50)
[2025-02-02 01:06] LABS: ALT (SGPT) 13 U/L (0-35); AST (SGOT) 17 U/L (14-36); Albumin 4.3 g/dl (3.5-5.0); Alkaline Phosphatase 93 U/L (38-126); Blood Urea Nitrogen 27 mg/dl (7-17); Calcium 9.8 mg/dl (8.4-10.2); Carbon Dioxide 25 mmol/L (22-30); Chloride 106 mmol/L (98-107); Estimated Creatinine Clearance 37 ml/min; Glucose 139 mg/dl (70-99); Potassium 4.4 mmol/L (3.5-5.1); Sodium 139 mmol/L (135-145); Total Protein 7.2 g/dl (6.3-8.2); eGFR 44.64
[2025-02-02 01:17] LABS: Troponin I < 0.012 ng/ml
[2025-02-02] MEDS: TYLENOL 1000 MG PO (01:30)
[2025-02-02] MEDS: LIDOCAINE 4% PATCH 1 PATCH TOPICAL (02:09)
[2025-02-02 04:31] LABS: Troponin I < 0.012 ng/ml
== END 2025-02-02 05:11 | disposition home or self-care (01) ==
LOC: EMR 00:03
PROVIDERS: Emergency Medicine; EMERGENCY PHYSICIAN Emergency Medicine; FAMILY PHYSICIAN Student in an Organized Health Care Education/Training Program
DX: R07.89 Other chest pain (principal); E03.9 Hypothyroidism, unspecified; E78.00 Pure hypercholesterolemia, unspecified; I10 Essential (primary) hypertension; I48.91 Unspecified atrial fibrillation; Z85.3 Personal history of malignant neoplasm of breast; Z87.891 Personal history of nicotine dependence
CPT/HCPCS: 99285; 96374; 96376; 71046; 80053; 84484; 85025; 85379; 93005